=== PATIENT | male | born 1960 | race Caucasian/White ===

== ENCOUNTER 2018-12-10 12:30 | Observation (INO) | payer SELFPAY ==
[~2018-12-10] VITALS: Ht 175.3 cm; Wt 74.1 kg
[~2018-12-10 12:30] MED LIST: ALBU17AE3 IH; AZIT-21 PO; PRD20T PO
--- NOTE | 2018-12-10 12:58 | NUR ---
PT CHANGED INTO GOWN. PT BELONGINGS PLACED BEHIND DOOR.
--- NOTE | 2018-12-10 12:59 | ED Psychosocial ---
General Chief Complaint: Suicidal Ideation Risk Stated Complaint: SUICIDAL Nursing Triage Note: AMBULATED TO TRIAGE WITHOUT DIFFICULTY. STATES HE IS HAVING SUICIDAL THOUGHTS OF HANGING HIMSLEF AND HOMICIDAL THOUGHTS TOWARDS ONE PERSON. STATES HE HAS NO INTENT OF HARMING STAFF. STATES HE IS DEPRESSED AND AXIOUS. TALKED WITH [facility] ON SUNDAY WHO SENT HIM TO [facility] ER AND WAS RELEASED. Source: patient Exam Limitations: no limitations History of Present Illness Date Seen by Provider: Dec 10, 2018 Time Seen by Provider: 12:55 Initial Comments To ER per private vehicle with reports of suicidal thoughts . He states that he has anxiety, anger and hostility. He would like to tie a rope around his neck and kill himself. He also states that he would like to kill his girlfriend's ex- . States that she would either tie a rope around his neck and lean forward or "Fuck it Ill just kill somebody else and then go kill myself". He states that he has seen [facility] therapy in the outpatient setting which at that time he didn't feel like helped. In hindsight he does feel like it helped. He's been homeless until his son with him stay with him here in [place]. Timing/Duration: getting worse Severity: moderate Associated Symptoms: suicidal ideation Allergies and Home Medications Allergies Coded Allergies: codeine (Verified Allergy, 06/24/13) Home Medications Albuterol 17 Gm Inh, 2 SPRAY IH Q4H PRN for WHEEZING FOR BREATHING Prescribed by: JOAO SUN on 06/24/13 1119 Azithromycin 250 Mg Tab, 1 TAB PO DAILY 2 tabs today, then 1 tab daily for 4 days Prescribed by: JOAO SUN on 06/24/13 1119 Prednisone 20 Mg Tab, 40 MG PO DAILY Prescribed by: JOAO SUN on 06/24/13 1119 Patient Home Medication List Home Medication List Reviewed: Yes Review of Systems Constitutional: see HPI EENTM: see HPI Respiratory: no symptoms reported Cardiovascular: no symptoms reported Genitourinary: no symptoms reported Musculoskeletal: no symptoms reported Skin: no symptoms reported Psychiatric/Neurological: No Symptoms Reported Past Hmfbcfk-Nwxkcw-Rtosvo Hx Patient Social History Alcohol Use: Denies 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) Smoking Status: Current Everyday Smoker Recent Foreign Travel: No Contact w/Someone Who Travel: No Recent Infectious Disease Expo: No Past Medical History Surgeries: Yes (EYE) Appendectomy Respiratory: No Cardiac: No Neurological: No Gastrointestinal: No Musculoskeletal: No Endocrine: Yes (BORDERLINE DIABETIC) Cataract Cancer: No Psychosocial: Yes Anxiety, Suicide Attempts, Bipolar, Depression Integumentary: No Blood Disorders: No Physical Exam Vital Signs - First Documented 12/10/18 12:30 Temp 98.3 Pulse 80 Resp 16 B/P (MAP) 139/93 (108) Pulse Ox 98 O2 Delivery Room Air Capillary Refill : Less Than 3 Seconds Height, Weight, BMI Height: 5'9.00" Weight: 170lbs. oz. 77.086892gz; BMI Method:Estimated General Appearance: WD/WN, no apparent distress HEENT: PERRL/EOMI, normal ENT inspection, TMs normal Neck: non-tender, full range of motion Respiratory: no respiratory distress, no accessory muscle use Cardiovascular: regular rate, rhythm, no murmur Gastrointestinal: normal bowel sounds, non tender, soft Neurologic/Psychiatric: alert, normal mood/affect, oriented x 3 Appearance/Memory: appropriate insight, disheveled, other (he is disheveled but is coherent in his conversation. He seems to have a good grasp on his situation and realizes he cannot go on. He does seem sincere in both his desire to get clean as well as his threats of self-harm if he does not get help.) Behavior/Eye Contact: cooperative, good eye contact Skin: normal color, warm/dry Progress/Results/Core Measures Results/Orders Lab Results Laboratory Tests Test 12/10/18 13:18 12/10/18 13:33 Range/Units Urine Color YELLOW Urine Clarity CLEAR Urine pH 5 5-9 Urine Specific [place] 1.025 H 1.016-1.022 Urine Protein NEGATIVE NEGATIVE Urine Glucose (UA) NEGATIVE NEGATIVE Urine Ketones 3+ H NEGATIVE Urine Nitrite NEGATIVE NEGATIVE Urine Bilirubin NEGATIVE NEGATIVE Urine Urobilinogen NORMAL NORMAL MG/DL Urine Leukocyte Esterase NEGATIVE NEGATIVE Urine RBC (Auto) 1+ H NEGATIVE Urine RBC NONE /HPF Urine WBC RARE /HPF Urine Squamous Epithelial Cells RARE /HPF Urine Crystals NONE /LPF Urine Bacteria NEGATIVE /HPF Urine Casts NONE /LPF Urine Mucus NEGATIVE /LPF Urine Culture Indicated NO Urine Opiates Screen NEGATIVE NEGATIVE Urine Oxycodone Screen NEGATIVE NEGATIVE Urine Methadone Screen NEGATIVE NEGATIVE Urine Propoxyphene Screen NEGATIVE NEGATIVE Urine Barbiturates Screen NEGATIVE NEGATIVE Ur Tricyclic Antidepressants Screen NEGATIVE NEGATIVE Urine Phencyclidine Screen NEGATIVE NEGATIVE Urine Amphetamines Screen POSITIVE H NEGATIVE Urine Methamphetamines Screen POSITIVE H NEGATIVE Urine Benzodiazepines Screen NEGATIVE NEGATIVE Urine Cocaine Screen NEGATIVE NEGATIVE Urine Cannabinoids Screen POSITIVE H NEGATIVE White Blood Count 12.8 H 4.3-11.0 10^3/uL Red Blood Count 4.23 L 4.35-5.85 10^6/uL Hemoglobin 12.9 L 13.3-17.7 G/DL Hematocrit 38 L 40-54 % Mean Corpuscular Volume 90 80-99 FL Mean Corpuscular Hemoglobin 30 25-34 PG Mean Corpuscular Hemoglobin Concent 34 32-36 G/DL Red Cell Distribution Width 14.1 10.0-14.5 % Platelet Count 257 130-400 10^3/uL Mean Platelet Volume 9.4 7.4-10.4 FL Neutrophils (%) (Auto) 70 42-75 % Lymphocytes (%) (Auto) 21 12-44 % Monocytes (%) (Auto) 9 0-12 % Eosinophils (%) (Auto) 1 0-10 % Basophils (%) (Auto) 0 0-10 % Neutrophils # (Auto) 8.9 H 1.8-7.8 X 10^3 Lymphocytes # (Auto) 2.6 1.0-4.0 X 10^3 Monocytes # (Auto) 1.1 H 0.0-1.0 X 10^3 Eosinophils # (Auto) 0.1 0.0-0.3 10^3/uL Basophils # (Auto) 0.1 0.0-0.1 10^3/uL Sodium Level 138 135-145 MMOL/L Potassium Level 3.8 3.6-5.0 MMOL/L Chloride Level 108 H 98-107 MMOL/L Carbon Dioxide Level 20 L 21-32 MMOL/L Anion Gap 10 5-14 MMOL/L Blood Urea Nitrogen 20 H 7-18 MG/DL Creatinine 0.78 0.60-1.30 MG/DL Estimat Glomerular Filtration Rate > 60 BUN/Creatinine Ratio 26 Glucose Level 75 70-105 MG/DL Calcium Level 9.1 8.5-10.1 MG/DL Corrected Calcium 8.9 8.5-10.1 MG/DL Total Bilirubin 0.6 0.1-1.0 MG/DL Aspartate Amino Transf (AST/SGOT) 23 5-34 U/L Alanine Aminotransferase (ALT/SGPT) 17 0-55 U/L Alkaline Phosphatase 65 40-136 U/L Total Protein 6.4 6.4-8.2 GM/DL Albumin 4.3 3.2-4.5 GM/DL Salicylates Level < 5.0 L 5.0-20.0 MG/DL Acetaminophen Level < 10 L 10-30 UG/ML Serum Alcohol < 10 <10 MG/DL My Orders Orders - JOAO SUN APRN Cbc With Automated Diff (12/10/18 12:39) Comprehensive Metabolic Panel (12/10/18 12:39) Ua Culture If Indicated (12/10/18 12:39) Drug Screen Stat (Urine) (12/10/18 12:39) Salicylate (12/10/18 12:39) Alcohol (12/10/18 12:39) Acetaminophen (12/10/18 12:39) Olanzapine Orally Dissolve Tab (Zyprexa (12/10/18 13:00) Epinephrine 1 Mg Injection (Adrenalin I (12/10/18 14:00) Famotidine Injection (Pepcid Injection) (12/10/18 14:00) General/Regular (12/10/18 Lunch) Ekg Tracing (12/10/18 14:27) General/Regular (12/10/18 Dinner) Medications Given in ED Current Medications Medications Dose Ordered Sig/Jaime Route Start Time Stop Time Status Last Admin Dose Admin Olanzapine 5 mg ONCE ONCE PO 12/10/18 13:00 12/10/18 13:01 DC 12/10/18 13:15 5 MG Vital Signs/I&O 12/10/18 12/10/18 12:30 12:40 Temp 98.3 98.1 Pulse 80 80 Resp 16 19 B/P (MAP) 139/93 (108) 136/102 (113) Pulse Ox 98 O2 Delivery Room Air Room Air Blood Pressure Mean: 108 Departure Communication (Admissions) Time/Spoke to Admitting Phy: 21:[address] Camejo, we'll admit, have social media analyst help with placement tomorrow. I'll continue the Zyprexa that he was given here and add some as needed lorazepam. 2105-I've spoken with [facility], no bed availability. [facility] [place] [facility] denies patient as they feel that given his methamphetamine use a rehabilitation facility would be better. [facility] in [place] has declined. [facility] in [place] has declined. Patient refuses to go to [facility] in [place] however I called them anyway and they don't have a bed. I called [facility] in [place] as well as [facility] in [place], neither of them accept. I called [facility] in [facility], they don't have a bed. I called [facility], his tracking number is [id number]. They state that there would be nothing else that they could contribute to this situation, we simply need to wait for placement. I've called [facility] and [facility] both at approximately 5:30 PM they stated they had beds and would like his information. [facility] nothing back and called back around 6:30 PM. They advised it would be a little bit before they could review his chart. Called them both back at 8 PM, both of whom stated he was several patient's down the list and it would be at least several hours before he could be evaluated. During this time the patient has remained very pleasant, cooperative and has not voiced any needs nor has he been impatient. . Impression Primary Impression: Suicidal intent Disposition: ADMITTED INPATIENT Condition: Stable Admissions Decision to Admit Reason: Admit from ER (General) Decision to Admit/Date: Dec 10, 2018 Time/Decision to Admit Time: 21:04 Departure-Patient Inst. Referrals: NO,LOCAL PHYSICIAN (PCP/Family) Primary Care Physician JOAO SUN APRN Dec 10, 2018 12:59
[2018-12-10] MEDS ORDERED: OLANZapine 5 MG ODT (ZyPREXA ZYDIS) PO ONE (13:00)
[2018-12-10 13:23] LABS: BILIRUBIN,URINE NEGATIVE (NEGATIVE); CLARITY,URINE CLEAR; COLOR,URINE YELLOW; GLUCOSE, URINE (UA) NEGATIVE (NEGATIVE); KETONES,URINE 3+ (NEGATIVE); LEUKOCYTE ESTERASE ,URINE NEGATIVE (NEGATIVE); NITRITE,URINE NEGATIVE (NEGATIVE); PH,URINE 5 (5-9); PROTEIN,URINE NEGATIVE (NEGATIVE); UROBILINOGEN,URINE NORMAL (NORMAL)
[2018-12-10 13:40] LABS: BASOPHILS # (AUTO) 0.1 10^3/uL (0.0-0.1); BASOPHILS % (AUTO) 0 % (0-10); EOSINOPHILS # (AUTO) 0.1 10^3/uL (0.0-0.3); EOSINOPHILS % (AUTO) 1 % (0-10); HEMATOCRIT 38 % (40-54); HEMOGLOBIN 12.9 G/DL (13.3-17.7); LYMPHOCYTES # (AUTO) 2.6 X 10^3 (1.0-4.0); LYMPHOCYTES % (AUTO) 21 % (12-44); MEAN CORPUSCULAR HGB CONC 34 G/DL (32-36); MEAN CORPUSCULAR VOLUME 90 FL (80-99); MEAN PLATELET VOLUME 9.4 FL (7.4-10.4); MONOCYTES # (AUTO) 1.1 X 10^3 (0.0-1.0); MONOCYTES % (AUTO) 9 % (0-12); NEUTROPHILS # (AUTO) 8.9 X 10^3 (1.8-7.8); NEUTROPHILS % (AUTO) 70 % (42-75); PLATELET COUNT 257 10^3/uL (130-400); RED CELL DISTRIBUTION WIDTH 14.1 % (10.0-14.5); WHITE BLOOD COUNT 12.8 10^3/uL (4.3-11.0)
[2018-12-10 13:41] LABS: AMPHETAMINE SCREEN, URINE POSITIVE (NEGATIVE); BARBITURATE SCREEN URINE NEGATIVE (NEGATIVE); BENZODIAZEPINES SCREEN URINE NEGATIVE (NEGATIVE); CANNABINOID SCREEN, URINE POSITIVE (NEGATIVE); COCAINE SCREEN URINE NEGATIVE (NEGATIVE); METHADONE STAT NEGATIVE (NEGATIVE); METHAMPHETAMINE SCREEN URINE S POSITIVE (NEGATIVE); OPIATE SCREEN URINE NEGATIVE (NEGATIVE); OXYCODONE STAT NEGATIVE (NEGATIVE); PROPOXYPHENE STAT NEGATIVE (NEGATIVE); TRICYCLIC ANTIDEPRESSANTS SCRE NEGATIVE (NEGATIVE)
[2018-12-10 13:42] LABS: BACTERIA,URINE NEGATIVE /HPF; SQUAMOUS EPITHELIAL CELL,UR RARE /HPF; WBC,URINE RARE /HPF
[2018-12-10 13:52] LABS: MEAN CORPUSCULAR HEMOGLOBIN 30 PG (25-34)
[2018-12-10] MEDS ORDERED: FAMOTIDINE 20MG/2ML IV (PEPCID) IVP ONE (14:00)
[2018-12-10] MEDS ORDERED: EPINEPHrine INJECTION 1 MG/ML AMP IM ONE (14:00)
--- NOTE | 2018-12-10 14:04 | NUR ---
PT REQUESTED THIS RN CALL HIS EX GIRLFRIEND. STATES SHE IS THE PERSON THAT DROPPED HIM OFF AT THIS ER TODAY. CALL WAS PLACED. SHE DID NOT WANT TO SPEAK WITH HIM STATING THAT OCCASIONALLY SHE CAN GET HIM UPSET AND SHE WANTED TO MAKE SURE THAT HE STAYED CALM AND RECEIVED TREATMENT.
[2018-12-10 14:05] LABS: ALANINE AMINOTRANSFERASE 17 U/L (0-55); ALBUMIN 4.3 GM/DL (3.2-4.5); ALKALINE PHOSPHATASE 65 U/L (40-136); BILIRUBIN,TOTAL 0.6 MG/DL (0.1-1.0); BUN/CREATININE RATIO 26; CALCIUM 9.1 MG/DL (8.5-10.1); CARBON DIOXIDE 20 MMOL/L (21-32); CHLORIDE 108 MMOL/L (98-107); CREATININE SERUM 0.78 MG/DL (0.60-1.30); GFR ESTIMATED > 60; GLUCOSE 75 MG/DL (70-105); POTASSIUM 3.8 MMOL/L (3.6-5.0); SALICYLATE < 5.0 MG/DL (5.0-20.0); SODIUM 138 MMOL/L (135-145); TOTAL PROTEIN 6.4 GM/DL (6.4-8.2)
[2018-12-10 14:08] LABS: ACETAMINOPHEN < 10 UG/ML (10-30)
--- NOTE | 2018-12-10 15:00 | NUR ---
PT MEAL TRAY ARRIVED. PT SITTING IN CHAIR TO EAT.
--- NOTE | 2018-12-10 16:01 | NUR ---
PT IN BED SLEEPING.
--- NOTE | 2018-12-10 17:12 | NUR ---
PT SLEEPING IN BED. PT NOTED TO CHANGE POSITION IN BED FREQUENTLY.
--- NOTE | 2018-12-10 19:00 | NUR ---
Recieved report from YAZMIN Dotson to assume care of pt @ this time.
--- NOTE | 2018-12-10 20:30 | NUR ---
Pt recieved and ate meal tray. Voices no c/o or concerns @ this time. Pt resting on ED cart. A&OX4. Will continue to monitor.
--- NOTE | 2018-12-10 22:42 | NUR ---
Provider in room updating pt on admission status. Pt voices no questions or concerns @ this time. VS obtained by P[facility]P. Will continue to monitor.
[2018-12-10 23:30] VITALS: BP 109/65
--- NOTE | 2018-12-10 23:30 | NUR ---
LIONEL MARTIN admitted to room 433-1, with an admitting diagnosis of SUICIDAL IDEATION, on 12/10/18 from ED via WHEELCHAIR, accompanied by ED STAFF.LIONEL MARTIN introduced to surroundings, call light, bed controls, phone, TV, temperature control, lights, meal times, smoking policy, visitor policy, side rail policy, bathrooms and showers. Patient Rights given to patient in the handbook. LIONEL MARTIN verbalizes understanding that [facility] is not responsible for the loss or damage to any personal effects or valuables that are kept in the patients posession during their hospitalization. NO HARM CONTRACT SIGNED BY PT.
[2018-12-11] MEDS ORDERED: LORazepam INJ 2 MG/ML (ATIVAN) VIAL IM PRN (01:15)
[2018-12-11] MEDS ORDERED: NICOTINE 21 MG (NICODERM) PATCH TD PRN (01:15)
[2018-12-11] MEDS ORDERED: LORazepam 1 MG (ATIVAN) TAB PO PRN (01:15)
--- NOTE | 2018-12-11 02:00 | NUR ---
[facility] contacted ED reporting they do not have inpatient beds @ this time.
[2018-12-11] MEDS ORDERED: METO-451 PO (03:07)
[2018-12-11 04:30] VITALS: BP 122/71
[2018-12-11 07:51] VITALS: BP 106/70
--- NOTE | 2018-12-11 08:41 | Short Stay Summary-Hospitalist ---
History of Present Illness HPI/Chief Complaint Patient is a 58-year-old male with a past medical history of depression who presented to the emergency department with chief complaint of suicidal and homicidal ideation. He states this has been going on for a while and he previously been on antidepressives that only helped slightly. Over the past few days he's had thoughts of hurting himself. He has a plan to kill himself which would be by hanging. He also has homicidal thoughts towards his girlfriend's ex-. He would like to seek psychiatric treatment. This was attempted to be arranged in the ER but transportation was unavailable. He was admitted to obs for protection of self until psych transport was available. He had not new complaints today. Source: patient Date Seen 12/11/18 Time Seen by a Provider: 08:40 Attending Physician Eleazar Camejo MD PCP No,Local Physician Referring Physician Date of Admission Dec 10, 2018 at 7:42 pm Home Medications & Allergies Home Medications Reviewed patient Home Medication Reconciliation performed by pharmacy medication reconciliations product support technician and/or nursing. Patients Allergies have been reviewed. Allergies Allergies Coded Allergies codeine (Verified Allergy, Unknown, 12/11/18) Past Kmkfsbr-Xfzjpj-Ijszev Hx Past Med/Social Hx: Reviewed Nursing Past Med/Soc Hx Patient Social History Marrital Status: single Alcohol Use: Denies 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) Smoking Status: Current Everyday Smoker Recent Foreign Travel: No Contact w/other who traveled: No Recent Infectious Disease Expo: No Past Medical History Surgeries: Appendectomy HEENT: Cataract Psychosocial: Anxiety, Suicide Attempts, Bipolar, Depression History of Blood Disorders: No Family History Reviewed Nursing Family Hx Review of Systems Constitutional: no symptoms reported EENTM: no symptoms reported Respiratory: no symptoms reported Cardiovascular: no symptoms reported Gastrointestinal: no symptoms reported Genitourinary: no symptoms reported Musculoskeletal: no symptoms reported Skin: no symptoms reported Psychiatric/Neurological: See HPI Physical Exam Physical Exam Vital Signs Vital Signs - First Documented 12/10/18 12:30 Temp 98.3 Pulse 80 Resp 16 B/P (MAP) 139/93 (108) Pulse Ox 98 O2 Delivery Room Air Capillary Refill : Less Than 3 Seconds Height, Weight, BMI Height: 5'9.00" Weight: 163lbs. 5.0oz. 74.061623js; BMI Method:Stated General Appearance: No Apparent Distress, Chronically ill HEENT: Moist Mucous Membranes; No Scleral Icterus (L), No Scleral Icterus (R) Neck: Normal Inspection, Supple; No JVD Respiratory: Lungs Clear, No Accessory Muscle Use, No Respiratory Distress Cardiovascular: Regular Rate, Rhythm, No Murmur Gastrointestinal: Normal Bowel Sounds, Non Tender, Soft; No Distended, No Rebound, No Tenderness Extremity: Normal Capillary Refill, No Calf Tenderness, No Pedal Edema Neurologic/Psychiatric: Alert, Oriented x3, Depressed Affect, Other (dissheveled) Skin: Normal Color, Warm/Dry, Tattoos/Piercings Results Results/Procedures Labs Laboratory Tests 12/10/18 13:33 Patient resulted labs reviewed. Imaging: Reviewed Imaging Report Short Stay Diagnosis Discharge Diagnosis-Short Stay Admission Diagnosis Suicidal Ideation Final Discharge Diagnosis Suicidal Ideation Conclusion Plan Suicidal Ideation Major Depression Homicidal Ideation Accepted at [facility] DC once transportation available around 200pm today Continue with 1:1 sitter and psych precautions Clinical Quality Measures DVT/VTE Risk/Contraindication: Risk Factor Score Per Nursin RFS Level Per Nursing on Admit: 2=Moderate NIDIA BURNS MD Dec 11, 2018 08:41
[2018-12-11] MEDS ORDERED: OLANZapine 5 MG ODT (ZyPREXA ZYDIS) PO SCH (09:00)
--- NOTE | 2018-12-11 09:40 | NUR ---
NALLELY/SUNSHINE discussed with the patient that secure transportation is set up for 3 p.m. on 12/12/2018 and a bed will be held at [facility] ([phone]). Addendum: 12/11/18 at 0952 by KERON GONSALEZ Update: A secure transportation has became available for the patient for 2-3 p.m. on 12/11/18.
--- NOTE | 2018-12-11 11:15 | NUR ---
Report given to YAZMIN Miranda at [facility].
== END 2018-12-11 11:07 ==
LOC: EDUNIT# 12:30 → ER 12:31 → UNDOADMOB 19:42 → 4TH 19:42 → UNDODISOB 12-11 12:15
PROVIDERS: ADMIT Internal Medicine; ATTEND Internal Medicine
DX: R45.851 Suicidal ideations (principal); F32.9 Major depressive disorder, single episode, unspecified; R45.850 Homicidal ideations; F17.210 Nicotine dependence, cigarettes, uncomplicated; F41.9 Anxiety disorder, unspecified; Z88.5 Allergy status to narcotic agent; Z79.2 Long term (current) use of antibiotics; Z79.52 Long term (current) use of systemic steroids; Z79.899 Other long term (current) drug therapy
CPT/HCPCS: 36415; 80053; 80306; 80320; 80329; 81000; 85025; 93005; G0378

== ENCOUNTER 2018-12-21 17:15 | Observation (INO) | payer SELFPAY ==
[~2018-12-21] VITALS: Ht 175.3 cm; Wt 84.0 kg
[~2018-12-21 17:15] MED LIST changes: +METO-451 PO
[2018-12-21] MEDS ORDERED: NS IV 1000 ML 1,000 ML IV ONE (17:28)
[2018-12-21 17:34] LABS: BASOPHILS % (AUTO) 0 % (0-10); EOSINOPHILS # (AUTO) 0.1 10^3/uL (0.0-0.3); EOSINOPHILS % (AUTO) 1 % (0-10); HEMATOCRIT 39 % (40-54); HEMOGLOBIN 13.2 G/DL (13.3-17.7); LYMPHOCYTES # (AUTO) 1.9 X 10^3 (1.0-4.0); LYMPHOCYTES % (AUTO) 17 % (12-44); MEAN CORPUSCULAR HEMOGLOBIN 31 PG (25-34); MEAN CORPUSCULAR HGB CONC 34 G/DL (32-36); MEAN CORPUSCULAR VOLUME 91 FL (80-99); MEAN PLATELET VOLUME 9.2 FL (7.4-10.4); MONOCYTES # (AUTO) 0.9 X 10^3 (0.0-1.0); MONOCYTES % (AUTO) 8 % (0-12); NEUTROPHILS # (AUTO) 8.8 X 10^3 (1.8-7.8); NEUTROPHILS % (AUTO) 74 % (42-75); PLATELET COUNT 274 10^3/uL (130-400); RED CELL DISTRIBUTION WIDTH 13.9 % (10.0-14.5); WHITE BLOOD COUNT 11.8 10^3/uL (4.3-11.0)
--- NOTE | 2018-12-21 17:37 | ED Psychosocial ---
General Chief Complaint: Overdose Stated Complaint: OVERDDOSE Nursing Triage Note: Patient brought to ER room 9 by [facility] with complaint of overdose of Trazadone 150 mg. Per patient he took approximately 13 tablets approximately 1 hour ago. He states he was trying to kill himself. Patient states he has a son that "doesn't love him anymore and I am a worthless father". he called a son after he took the pills and told him he was going to kill himself and the son called EMS. Patient states he is homeless and lives in his car. Source: patient Exam Limitations: no limitations History of Present Illness Date Seen by Provider: Dec 21, 2018 Time Seen by Provider: 17:28 Initial Comments Here with report of overdosing on 13 each 150 mg trazodone tablets in an effort to commit suicide. Patient is very drowsy. After taking the meds he contacted his son and told him. Law enforcement found him in his car and EMS was summoned and brought him here. Patient is quite drowsy but does answer simple questions and follow simple commands. He is protecting his airway well. He has history of suicidal ideation. This seems to be related to he was recently evicted and is living in his car currently. He does arrive quite sweaty. He states he was in his car but all the windows were down. Denies nausea or vomiting. Has had some d iarrhea. Timing/Duration: just prior to arrival (approximately one hour ago) Severity: severe Associated Symptoms: ingestion, suicidal ideation Allergies and Home Medications Allergies Coded Allergies: codeine (Verified Allergy, Unknown, 12/11/18) Home Medications No Active Prescriptions or Reported Meds Patient Home Medication List Home Medication List Reviewed: Yes Review of Systems Constitutional: see HPI; No chills; diaphoresis; No fever (tramadol as he did try to isolate elevation) EENTM: no symptoms reported Respiratory: no symptoms reported Cardiovascular: no symptoms reported Gastrointestinal: No abdominal pain; diarrhea Genitourinary: No dysuria, No pain Musculoskeletal: no symptoms reported Skin: no symptoms reported Psychiatric/Neurological: See HPI, Depressed, Emotional Problems All Other Systems Reviewed Negative Unless Noted: Yes Past Zdiwgcq-Xbhhot-Czovhl Hx Past Med/Social Hx: Reviewed Nursing Past Med/Soc Hx Patient Social History Alcohol Use: Denies Use Recreational Drug Use: Yes (meth and marijuana) Smoking Status: Current Everyday Smoker Recent Foreign Travel: No Contact w/Someone Who Travel: No Recent Infectious Disease Expo: No Physical Abuse: No Sexual Abuse: No Mistreated: No Fear: No Past Medical History Surgeries: Yes (EYE) Appendectomy Respiratory: No Cardiac: No Neurological: No Gastrointestinal: No Musculoskeletal: No Endocrine: Yes (BORDERLINE DIABETIC) Cataract Cancer: No Psychosocial: Yes Anxiety, Suicide Attempts, Bipolar, Depression Nursing Suicide Risk Notes: Patient presents today for an overdose on trazadone trying to kill himself. Patient states he has tried to kill himself in the past on cocaine. Integumentary: No Blood Disorders: No Family Medical History Reviewed Nursing Family Hx Physical Exam Vital Signs - First Documented 12/21/18 17:24 Temp 97.6 Pulse 76 Resp 14 B/P (MAP) 125/79 (94) Pulse Ox 96 O2 Delivery Room Air Capillary Refill : Less Than 3 Seconds Height, Weight, BMI Height: 5'9.00" Weight: 165lbs. 5.0oz. 74.368813ls; BMI Method:Stated General Appearance: WD/WN, no apparent distress HEENT: PERRL/EOMI, pharynx normal Neck: full range of motion, supple Respiratory: lungs clear, normal breath sounds Cardiovascular: regular rate, rhythm, no murmur Gastrointestinal: non tender, soft Extremities: non-tender, normal inspection Neurologic/Psychiatric: alert, oriented x 3 (Li) Appearance/Memory: disheveled Behavior/Eye Contact: cooperative, decreased rate of speech Thoughts/Hallucinations: normal thought pattern, no apparent hallucination Skin: normal color, warm/dry Progress/Results/Core Measures Results/Orders Lab Results Laboratory Tests Test 12/21/18 17:24 12/21/18 18:43 12/22/18 04:15 Range/Units White Blood Count 11.8 H 12.4 H 4.3-11.0 10^3/uL Red Blood Count 4.27 L 3.84 L 4.35-5.85 10^6/uL Hemoglobin 13.2 L 11.8 L 13.3-17.7 G/DL Hematocrit 39 L 36 L 40-54 % Mean Corpuscular Volume 91 93 80-99 FL Mean Corpuscular Hemoglobin 31 31 25-34 PG Mean Corpuscular Hemoglobin Concent 34 33 32-36 G/DL Red Cell Distribution Width 13.9 13.9 10.0-14.5 % Platelet Count 274 245 130-400 10^3/uL Mean Platelet Volume 9.2 9.4 7.4-10.4 FL Neutrophils (%) (Auto) 74 66 42-75 % Lymphocytes (%) (Auto) 17 24 12-44 % Monocytes (%) (Auto) 8 8 0-12 % Eosinophils (%) (Auto) 1 2 0-10 % Basophils (%) (Auto) 0 0 0-10 % Neutrophils # (Auto) 8.8 H 8.2 H 1.8-7.8 X 10^3 Lymphocytes # (Auto) 1.9 3.0 1.0-4.0 X 10^3 Monocytes # (Auto) 0.9 1.0 0.0-1.0 X 10^3 Eosinophils # (Auto) 0.1 0.2 0.0-0.3 10^3/uL Basophils # (Auto) 0.0 0.0 0.0-0.1 10^3/uL Sodium Level 143 143 135-145 MMOL/L Potassium Level 4.0 3.9 3.6-5.0 MMOL/L Chloride Level 109 H 111 H 98-107 MMOL/L Carbon Dioxide Level 22 24 21-32 MMOL/L Anion Gap 12 8 5-14 MMOL/L Blood Urea Nitrogen 18 15 7-18 MG/DL Creatinine 0.97 0.87 0.60-1.30 MG/DL Estimat Glomerular Filtration Rate > 60 > 60 BUN/Creatinine Ratio 19 17 Glucose Level 120 H 108 H 70-105 MG/DL Calcium Level 8.7 8.2 L 8.5-10.1 MG/DL Corrected Calcium 8.5 8.5-10.1 MG/DL Total Bilirubin 0.4 0.1-1.0 MG/DL Aspartate Amino Transf (AST/SGOT) 17 5-34 U/L Alanine Aminotransferase (ALT/SGPT) 61 H 0-55 U/L Alkaline Phosphatase 52 40-136 U/L Total Protein 6.3 L 6.4-8.2 GM/DL Albumin 4.2 3.2-4.5 GM/DL Salicylates Level < 5.0 L 5.0-20.0 MG/DL Acetaminophen Level < 10 L 10-30 UG/ML Serum Alcohol < 10 <10 MG/DL Urine Color NORMA H Urine Clarity CLEAR Urine pH 6 5-9 Urine Specific Arverne 1.020 1.016-1.022 Urine Protein 1+ H NEGATIVE Urine Glucose (UA) NEGATIVE NEGATIVE Urine Ketones 1+ H NEGATIVE Urine Nitrite NEGATIVE NEGATIVE Urine Bilirubin NEGATIVE NEGATIVE Urine Urobilinogen 4 H NORMAL MG/DL Urine Leukocyte Esterase 1+ H NEGATIVE Urine RBC (Auto) NEGATIVE NEGATIVE Urine RBC NONE /HPF Urine WBC 0-2 /HPF Urine Squamous Epithelial Cells 0-2 /HPF Urine Crystals NONE /LPF Urine Bacteria TRACE /HPF Urine Casts NONE /LPF Urine Mucus MODERATE H /LPF Urine Culture Indicated NO Urine Opiates Screen NEGATIVE NEGATIVE Urine Oxycodone Screen NEGATIVE NEGATIVE Urine Methadone Screen NEGATIVE NEGATIVE Urine Propoxyphene Screen NEGATIVE NEGATIVE Urine Barbiturates Screen NEGATIVE NEGATIVE Ur Tricyclic Antidepressants Screen NEGATIVE NEGATIVE Urine Phencyclidine Screen NEGATIVE NEGATIVE Urine Amphetamines Screen NEGATIVE NEGATIVE Urine Methamphetamines Screen NEGATIVE NEGATIVE Urine Benzodiazepines Screen NEGATIVE NEGATIVE Urine Cocaine Screen NEGATIVE NEGATIVE Urine Cannabinoids Screen POSITIVE H NEGATIVE Phosphorus Level 4.2 2.3-4.7 MG/DL Magnesium Level 2.4 1.6-2.4 MG/DL My Orders Orders - CURT GAVIN MD Ua Culture If Indicated (12/21/18 17:28) Cbc With Automated Diff (12/21/18 17:28) Comprehensive Metabolic Panel (12/21/18 17:28) Alcohol (12/21/18 17:28) Drug Screen Stat (Urine) (12/21/18 17:28) Acetaminophen (12/21/18 17:28) Salicylate (12/21/18 17:28) Ekg Tracing (12/21/18 17:28) Ed Iv/Invasive Line Start (12/21/18 17:28) Monitor-Rhythm Ecg Trace Only (12/21/18 17:28) Bh Status Checks/Observation Q15M (12/21/18 17:28) Ed Iv/Invasive Line Start (12/21/18 17:28) Ns Iv 1000 Ml (Sodium Chloride 0.9%) (12/21/18 17:28) Medications Given in ED Vital Signs/I&O 12/21/18 12/21/18 12/21/18 12/21/18 19:59 20:10 20:15 20:30 Temp 97.6 97.5 Pulse 76 91 Resp 14 B/P (MAP) 123/67 (85) Pulse Ox 95 O2 Delivery Room Air Room Air 12/21/18 12/21/18 12/21/18 12/21/18 20:45 21:00 22:00 23:00 Pulse 76 75 74 72 Resp 9 15 13 13 B/P (MAP) 123/77 (92) 129/69 (89) Pulse Ox 97 96 97 94 O2 Delivery Room Air Room Air Room Air Room Air 12/22/18 12/22/18 12/22/18 12/22/18 00:00 00:00 00:00 01:00 Temp 97.8 Pulse 72 70 Resp 13 13 B/P (MAP) 104/67 (79) Pulse Ox 96 96 96 O2 Delivery Room Air Room Air Room Air 12/22/18 12/22/18 12/22/18 12/22/18 01:00 02:00 03:00 04:00 Pulse 70 70 74 Resp 13 14 B/P (MAP) 84/48 (60) 93/60 (71) Pulse Ox 96 96 O2 Delivery Room Air Room Air Room Air 12/22/18 12/22/18 12/22/18 04:00 04:00 05:00 Temp 98.2 Pulse 69 72 Resp 14 14 B/P (MAP) 97/59 (72) 93/61 (72) Pulse Ox 95 98 O2 Delivery Room Air Room Air Blood Pressure Mean: 94 Progress Progress Note : Progress Note Seen and evaluated on arrival by EMS. IV established by EMS. Normal saline 1 L bolus, labs, UA, EKG ordered. Poison control contacted. Supportive care indicated. Priapism can be a concern and overdose. Patient will need monitoring due to possibility of significant sedation. 1843: I did discuss the case with Dr. Martínez. He access patient for admission to the ICU, observation status. Patient agrees to plan. No significant sequela thus far except for sedation. Initial ECG Impression Date: Dec 21, 2018 Initial ECG Impression Time: 17:53 Initial ECG Rate: 74 Initial ECG Rhythm: Normal Sinus Comment Sinus rhythm with normal axis. No evidence of ST elevation NC. Similar to 12/10/18. Interpreted by me. Departure Impression Primary Impression: Overdose Qualified Codes: T50.902A - Poisoning by unspecified drugs, medicaments and biological substances, intentional self-harm, initial encounter Disposition: ADMITTED INPATIENT Condition: Stable Admissions Decision to Admit Reason: Admit from ER (General) Decision to Admit/Date: Dec 21, 2018 Time/Decision to Admit Time: 18:43 Departure-Patient Inst. Referrals: NO,LOCAL PHYSICIAN (PCP/Family) Primary Care Physician Patient Instructions: ALCOHOL AND SUBSTANCE ABUSE Scripts No Active Prescriptions or Reported Meds CURT GAVIN MD Dec 21, 2018 17:37
[2018-12-21 17:55] LABS: ALANINE AMINOTRANSFERASE 61 U/L (0-55); ALBUMIN 4.2 GM/DL (3.2-4.5); ALKALINE PHOSPHATASE 52 U/L (40-136); BILIRUBIN,TOTAL 0.4 MG/DL (0.1-1.0); BUN/CREATININE RATIO 19; CALCIUM 8.7 MG/DL (8.5-10.1); CARBON DIOXIDE 22 MMOL/L (21-32); CHLORIDE 109 MMOL/L (98-107); CREATININE SERUM 0.97 MG/DL (0.60-1.30); GFR ESTIMATED > 60; GLUCOSE 120 MG/DL (70-105); SALICYLATE < 5.0 MG/DL (5.0-20.0); SODIUM 143 MMOL/L (135-145); TOTAL PROTEIN 6.3 GM/DL (6.4-8.2)
[2018-12-21 18:05] LABS: ACETAMINOPHEN < 10 UG/ML (10-30)
--- NOTE | 2018-12-21 18:09 | NUR ---
Patient awake and alert. Patient has asked for ice chips, food, and a shower. Patient given ice chips and is eating them without difficulty.
--- NOTE | 2018-12-21 18:39 | NUR ---
Patient resting quietly in room. Son was at bedside. Patient eating ice chips.
[2018-12-21 18:53] LABS: BILIRUBIN,URINE NEGATIVE (NEGATIVE); CLARITY,URINE CLEAR; COLOR,URINE AMBER; GLUCOSE, URINE (UA) NEGATIVE (NEGATIVE); KETONES,URINE 1+ (NEGATIVE); LEUKOCYTE ESTERASE ,URINE 1+ (NEGATIVE); NITRITE,URINE NEGATIVE (NEGATIVE); PH,URINE 6 (5-9); PROTEIN,URINE 1+ (NEGATIVE); UROBILINOGEN,URINE 4 MG/DL (NORMAL)
[2018-12-21 19:02] LABS: BACTERIA,URINE TRACE /HPF; SQUAMOUS EPITHELIAL CELL,UR 0-2 /HPF; WBC,URINE 0-2 /HPF
[2018-12-21 19:06] LABS: AMPHETAMINE SCREEN, URINE NEGATIVE (NEGATIVE); BARBITURATE SCREEN URINE NEGATIVE (NEGATIVE); BENZODIAZEPINES SCREEN URINE NEGATIVE (NEGATIVE); CANNABINOID SCREEN, URINE POSITIVE (NEGATIVE); COCAINE SCREEN URINE NEGATIVE (NEGATIVE); METHADONE STAT NEGATIVE (NEGATIVE); METHAMPHETAMINE SCREEN URINE S NEGATIVE (NEGATIVE); OPIATE SCREEN URINE NEGATIVE (NEGATIVE); OXYCODONE STAT NEGATIVE (NEGATIVE); PROPOXYPHENE STAT NEGATIVE (NEGATIVE); TRICYCLIC ANTIDEPRESSANTS SCRE NEGATIVE (NEGATIVE)
--- NOTE | 2018-12-21 19:16 | NUR ---
Patient resting quietly in bed. Vital signs stable. No signs of distress present.
--- NOTE | 2018-12-21 19:19 | NUR ---
Patient will remain in ER until nurse arrives to take over patient care in ICU.
--- NOTE | 2018-12-21 19:38 | NUR ---
Patient resting quietly in bed. No signs of distress. Vital signs stable.
[2018-12-21] MEDS: NS IV 1000 ML 1,000 ML IV SCH (20:32)
[2018-12-21] MEDS ORDERED: NS IV 1000 ML 1,000 ML ONE (20:32)
[2018-12-21 20:45] VITALS: BP 123/77
[2018-12-21] MEDS ORDERED: ONDANSETRON 4 MG/2 ML (SDV) Z0FRAN IV PRN (20:45)
[2018-12-21 21:00] VITALS: BP 129/69
[2018-12-22] VITALS (13 sets, daily range): BP systolic 84–125; BP diastolic 48–72
[2018-12-22 04:24] LABS: BASOPHILS % (AUTO) 0 % (0-10); EOSINOPHILS # (AUTO) 0.2 10^3/uL (0.0-0.3); EOSINOPHILS % (AUTO) 2 % (0-10); HEMATOCRIT 36 % (40-54); HEMOGLOBIN 11.8 G/DL (13.3-17.7); LYMPHOCYTES % (AUTO) 24 % (12-44); MEAN CORPUSCULAR HEMOGLOBIN 31 PG (25-34); MEAN CORPUSCULAR HGB CONC 33 G/DL (32-36); MEAN CORPUSCULAR VOLUME 93 FL (80-99); MEAN PLATELET VOLUME 9.4 FL (7.4-10.4); MONOCYTES % (AUTO) 8 % (0-12); NEUTROPHILS # (AUTO) 8.2 X 10^3 (1.8-7.8); NEUTROPHILS % (AUTO) 66 % (42-75); PLATELET COUNT 245 10^3/uL (130-400); RED CELL DISTRIBUTION WIDTH 13.9 % (10.0-14.5); WHITE BLOOD COUNT 12.4 10^3/uL (4.3-11.0)
[2018-12-22] MEDS: NS IV 1000 ML 1,000 ML IV SCH (04:30)
[2018-12-22 04:43] LABS: BUN/CREATININE RATIO 17; CALCIUM 8.2 MG/DL (8.5-10.1); CARBON DIOXIDE 24 MMOL/L (21-32); CHLORIDE 111 MMOL/L (98-107); CREATININE SERUM 0.87 MG/DL (0.60-1.30); GFR ESTIMATED > 60; GLUCOSE 108 MG/DL (70-105); MAGNESIUM 2.4 MG/DL (1.6-2.4); PHOSPHORUS 4.2 MG/DL (2.3-4.7); POTASSIUM 3.9 MMOL/L (3.6-5.0); SODIUM 143 MMOL/L (135-145)
[2018-12-22] MEDS ORDERED: MAGNESIUM 1 GM/100 ML IVPB 100 ML IV SCH (06:00)
[2018-12-22] MEDS ORDERED: KCL 20 MEQ TAB (K-DUR) PO SCH (06:00)
[2018-12-22] MEDS ORDERED: POTASSIUM CL 10MEQ/50ML IVPB 50 ML IV SCH (06:00)
--- NOTE | 2018-12-22 06:28 | Diagnostic Imaging Report ---
INDICATION: Drug overdose shortness of breath COMPARISON: 06/24/2013 FINDINGS: Single view of the chest demonstrates clear lungs bilaterally. The heart size is normal. There is no pneumothorax. Osseous structures are normal. IMPRESSION: No acute findings. Normal chest. Dictated by: Dictated on workstation # [id number]
--- NOTE | 2018-12-22 06:52 | Pulmonary Consultation ---
History of Present Illness History of Present Illness Date of Consultation 12/22/18 06:45 Date of Admission Allergies and Home Medications Allergies Coded Allergies: codeine (Verified Allergy, Unknown, 12/11/18) Home Medications No Active Prescriptions or Reported Meds Past Ppdueqj-Brzamh-Wmcsju Hx Past Med/Social Hx: Reviewed Nursing Past Med/Soc Hx Patient Social History Alcohol Use: Denies Use Recreational Drug Use: Yes (meth and marijuana) Drug of Choice: meth, marijuana Smoking Status: Current Everyday Smoker Type Used: Cigarettes 2nd Hand Smoke Exposure: Yes Recent Foreign Travel: No Contact w/Someone Who Travel: No Recent Infectious Disease Expo: No Recent Hopitalizations: No Physical Abuse: No Sexual Abuse: No Mistreated: No Fear: No Seasonal Allergies Seasonal Allergies: No Past Medical History Surgeries: Yes (cararacts) Appendectomy Respiratory: No Cardiac: No Neurological: No Genitourinary: No Gastrointestinal: No Musculoskeletal: No Endocrine: No HEENT: No Cataract Cancer: No Psychosocial: Yes Suicide Attempts, Depression Nursing Suicide Risk Notes: Patient presents today for an overdose on trazadone trying to kill himself. Patient states he has tried to kill himself in the past on cocaine. Integumentary: No Blood Disorders: No Family Medical History Reviewed Nursing Family Hx Review of Systems Time Seen by Provider: 06:51 Constitutional: No: Fever, Chills, Sweats, Weakness, Malaise, Other Eyes: No: Pain, Vision change, Conjunctivae inflammation, Eyelid inflammation, Other, Redness ENT: Nose congestion; No: Ear pain, Ear discharge, Nose pain, Nose discharge, Mouth pain, Mouth swelling, Throat pain, Throat swelling, Other Respiratory: No: Cough, Dry, Shortness of breath, SOB with excertion, Wheezing, Hemoptysis, Pleuritic Pain, Sputum, Wheezing, Other Cardiovascular: No: Chest Pain, Palpitations, Orthopnea, Paroxysmal Noc. Dyspnea, Edema, Lt Headedness, Other Sepsis Event Evaluation Height, Weight, BMI Height: 5'9.00" Weight: 175lbs. 5.0oz. 79.990684xi; 25.9 BMI Method:Stated Exam Exam Vital Signs Date Time Temp Pulse Resp B/P (MAP) Pulse Ox O2 Delivery O2 Flow Rate FiO2 12/22/18 06:00 73 12 98/61 (73) 96 Room Air 12/22/18 05:00 72 14 93/61 (72) 98 Room Air 12/22/18 04:00 69 14 97/59 (72) 95 Room Air 12/22/18 04:00 98.2 12/22/18 04:00 Room Air 12/22/18 03:00 74 14 93/60 (71) 96 Room Air 12/22/18 02:00 70 13 84/48 (60) 96 Room Air 12/22/18 01:00 70 12/22/18 01:00 70 13 104/67 (79) 96 Room Air 12/22/18 00:00 97.8 12/22/18 00:00 72 13 96 Room Air 12/22/18 00:00 96 Room Air 12/21/18 23:00 72 13 94 Room Air 12/21/18 22:00 74 13 97 Room Air 12/21/18 21:00 75 15 129/69 (89) 96 Room Air 12/21/18 20:45 76 9 123/77 (92) 97 Room Air 12/21/18 20:30 91 12/21/18 20:15 97.5 12/21/18 20:10 Room Air 12/21/18 19:59 97.6 76 14 123/67 (85) 95 Room Air 12/21/18 17:24 97.6 76 14 125/79 (94) 96 Room Air I & O 12/22/18 07:00 Intake Total 2600 ml Output Total 300 ml Balance 2300 ml Height & Weight Height: 5'9.00" Weight: 175lbs. 5.0oz. 79.811215cn; 25.9 BMI Method:Stated General Appearance: No Apparent Distress, WD/WN HEENT: PERRL/EOMI, Pharynx Normal Neck: Full Range of Motion, Non Tender, Supple Respiratory: Chest Non Tender, Lungs Clear, Normal Breath Sounds, No Accessory Muscle Use, No Respiratory Distress Cardiovascular: Regular Rate, Rhythm, No Edema, No Gallop Capillary Refill: Less Than 3 Seconds Gastrointestinal: non tender, soft Extremity: Normal Capillary Refill, No Pedal Edema Neurologic/Psychiatric: Alert, Oriented x3 Skin: Normal Color, Warm/Dry Lymphatic: No Adenopathy Results Lab Laboratory Tests 12/21/18 17:24 12/22/18 04:15 Assessment/Plan Assessment/Plan Acute Suicidal attempt with OD on Trazodone -Poison control following -Behavioral health -Suicidal precautions Leukocytosis - No fever -Continue to monitor -CXR is clear -UA is negative Hx of depression and suicidal attempts. Mild Hypotension -IVF bolus -Continue IVF Valeria use -Education KHRIS ANDREA DO Dec 22, 2018 06:52
[2018-12-22] MEDS ORDERED: LACTATED RINGERS 1,000 ML IV SCH (07:00)
--- NOTE | 2018-12-22 09:37 | NUR ---
PATIENT TRANSFER TO 4TH FLOOR AT THIS TIME TO ROOM 420, PERSONAL BELONGINGS SENT WITH PATIENT. REPORT GIVEN TO NOAH ARCE TO ASSUME CARE OF PATIENT.
--- NOTE | 2018-12-22 09:40 | NUR ---
RECEIVED FROM ICU, ALERT, ORIENTED TO ROOM, CALL LIGHT WITHIN REACH, DENIES PAIN OR SOB, CAMPO SITTER IN ROOM AND ACTIVATED, COOPERATIVE, GOOD EYE CONTACT
[2018-12-22] MEDS ORDERED: diphenhydrAMINE 25 MG TAB (BENADRYL) PO PRN (10:45)
[2018-12-22] MEDS ORDERED: ACETAMINOPHEN 325 MG TABLET PO PRN (10:45)
[2018-12-22] MEDS ORDERED: POLYETHYLENE GLYCOL 17 GM (MIRALAX) PACK PO PRN (10:45)
[2018-12-22] MEDS ORDERED: MELATONIN 3 MG TABLET PO PRN (10:45)
[2018-12-22] MEDS ORDERED: ZOLPIDEM 5 MG (AMBIEN) TAB PO PRN (10:45)
[2018-12-22] MEDS ORDERED: ONDANSETRON 4 MG (ZOFRAN) ORAL DISSOLVE TAB PO PRN (10:45)
--- NOTE | 2018-12-22 10:51 | History & Physical-Hospitalist ---
History of Present Illness HPI/Chief Complaint Deepak Martinez is a 58-year-old male with past medical history of depression who presented with an intentional drug overdose of trazodone. He was recently discharged from an inpatient psychiatric stay at [facility] in [place]. He reports that he took the trazodone with the intent of ending his life. He reports continued suicidal ideation and intent. He has no homicidal ideations at this time. He does have a history of both suicidal and homicidal attempts. He has attempted to overdose on medications and has cut himself. He reports that his current social situation is poor. He says that his son recently kicked him out of his house and that he has been living in a car. He also has issues with methamphetamine abuse. He would like to seek help but cannot get into a rehabilitation facility at this time. He denies any fevers, chills, chest pain, dyspnea, cough, abdominal pain, nausea, vomiting, diarrhea, constipation, dysuria, myalgias, arthralgias. Source: patient Exam Limitations: no limitations Date Seen 12/22/18 Time Seen by a Provider: 08:15 Attending Physician Marielos Callahan MD PCP No,Local Physician Referring Physician Date of Admission Dec 21, 2018 at 18:47 Home Medications & Allergies Home Medications Reviewed patient Home Medication Reconciliation performed by pharmacy medication reconciliations audiometric technician and/or nursing. Patients Allergies have been reviewed. Allergies Allergies Coded Allergies codeine (Verified Allergy, Unknown, 12/11/18) Past Tsvhsad-Pjdepf-Ooxeey Hx Past Med/Social Hx: Reviewed Nursing Past Med/Soc Hx Patient Social History Alcohol Use: Denies Use Recreational Drug Use: Yes (meth and marijuana) Drug of Choice: meth, marijuana Smoking Status: Current Everyday Smoker Type Used: Cigarettes 2nd Hand Smoke Exposure: Yes Recent Foreign Travel: No Contact w/other who traveled: No Recent Hopitalizations: No Recent Infectious Disease Expo: No Seasonal Allergies Seasonal Allergies: No Past Medical History Surgeries: Appendectomy HEENT: Cataract Psychosocial: Suicide Attempts, Depression History of Blood Disorders: No Family History Reviewed Nursing Family Hx Review of Systems Constitutional: see HPI Physical Exam Physical Exam Vital Signs Vital Signs - First Documented 12/21/18 17:24 Temp 97.6 Pulse 76 Resp 14 B/P (MAP) 125/79 (94) Pulse Ox 96 O2 Delivery Room Air Capillary Refill : Less Than 3 Seconds Height, Weight, BMI Height: 5'9.00" Weight: 185lbs. 2.0oz. 83.909889ta; 25.9 BMI Method:Stated General Appearance: No Apparent Distress, WD/WN, Other (Disheveled, poorly groomed) HEENT: PERRL/EOMI, Pharynx Normal Neck: Normal Inspection, Supple Respiratory: Lungs Clear, Normal Breath Sounds, No Respiratory Distress Cardiovascular: Regular Rate, Rhythm, No Edema, No Murmur Gastrointestinal: Normal Bowel Sounds, Non Tender, Soft Extremity: Normal Inspection, Non Tender Neurologic/Psychiatric: Alert, Oriented x3, Depressed Affect Skin: Normal Color, Warm/Dry, Other (Scars on wrists) Lymphatic: No Adenopathy Results Results/Procedures Labs Laboratory Tests 12/21/18 17:24 12/22/18 04:15 Patient resulted labs reviewed. Imaging: Reviewed Imaging Report Assessment/Plan Admission Diagnosis Intentional drug overdose Admission Status: Observation Reason for Inpatient Admission: Suicidal ideation Depression Assessment and Plan Intentional drug overdose Suicide attempt Depression Anxiety Methamphetamine abuse Cannabis abuse Attempted suicide by overdosing on trazodone ER contacted CCU recommended monitoring for sedation and VP PLATFORMS depression Alert and oriented this morning, hemodynamically stable on room air Transition to med/surg Consult behavioral health Suicide precautions Tele-sitter ordered Will likely require inpatient psychiatric treatment Diagnosis/Problems Diagnosis/Problems (1) Intentional drug overdose Status: Acute (2) Depression Status: Chronic (3) Anxiety Status: Chronic (4) Suicide attempt Status: Acute (5) History of suicide attempt Status: Chronic (6) Methamphetamine abuse Status: Chronic (7) Cannabis abuse Status: Chronic (8) Social problem Status: Acute Clinical Quality Measures DVT/VTE Risk/Contraindication: Risk Factor Score Per Nursin RFS Level Per Nursing on Admit: 2=Moderate MARIELOS CALLAHAN MD Dec 22, 2018 10:51
[2018-12-22] MEDS: DOCUSATE SODIUM 100 MG (COLACE) CAP PO SCH (19:55)
[2018-12-22] MEDS: SENNA W/DOCUSATE (SENOKOT S) TABLET PO SCH (19:55)
[2018-12-23 04:35] VITALS: BP 114/66
[2018-12-23 04:46] LABS: BASOPHILS % (AUTO) 0 % (0-10); EOSINOPHILS # (AUTO) 0.5 10^3/uL (0.0-0.3); EOSINOPHILS % (AUTO) 4 % (0-10); HEMATOCRIT 39 % (40-54); HEMOGLOBIN 12.6 G/DL (13.3-17.7); LYMPHOCYTES # (AUTO) 3.8 X 10^3 (1.0-4.0); LYMPHOCYTES % (AUTO) 30 % (12-44); MEAN CORPUSCULAR HEMOGLOBIN 30 PG (25-34); MEAN CORPUSCULAR HGB CONC 33 G/DL (32-36); MEAN CORPUSCULAR VOLUME 93 FL (80-99); MEAN PLATELET VOLUME 9.7 FL (7.4-10.4); MONOCYTES # (AUTO) 1.1 X 10^3 (0.0-1.0); MONOCYTES % (AUTO) 9 % (0-12); NEUTROPHILS # (AUTO) 7.4 X 10^3 (1.8-7.8); NEUTROPHILS % (AUTO) 58 % (42-75); PLATELET COUNT 254 10^3/uL (130-400); RED CELL DISTRIBUTION WIDTH 13.7 % (10.0-14.5); WHITE BLOOD COUNT 12.8 10^3/uL (4.3-11.0)
[2018-12-23 05:08] LABS: BUN/CREATININE RATIO 19; CALCIUM 8.8 MG/DL (8.5-10.1); CARBON DIOXIDE 21 MMOL/L (21-32); CHLORIDE 110 MMOL/L (98-107); CREATININE SERUM 0.84 MG/DL (0.60-1.30); GFR ESTIMATED > 60; GLUCOSE 89 MG/DL (70-105); MAGNESIUM 1.9 MG/DL (1.6-2.4); PHOSPHORUS 3.8 MG/DL (2.3-4.7); POTASSIUM 4.1 MMOL/L (3.6-5.0); SODIUM 140 MMOL/L (135-145)
[2018-12-23 08:00] VITALS: BP 124/70
[2018-12-23] MEDS: DOCUSATE SODIUM 100 MG (COLACE) CAP PO SCH ×2 (09:00→21:23)
[2018-12-23] MEDS: SENNA W/DOCUSATE (SENOKOT S) TABLET PO SCH ×2 (09:00→21:23)
--- NOTE | 2018-12-23 09:14 | NUR ---
CM/SUNSHINE spoke with patient in regards to the SS consult. Discussed that he had recently been here and then went to [facility]. He stated he was not interested in going to inpatient facility this time as they do not help. He said "I will play by the book and do / say what need to until released then go kill someone". He did confirm that when he took the pills it was a suicide attempt. Call into [facility] for assessment. [facility] computer forensics technician will be out this day at 11:30am. Addendum: 12/23/18 at 0958 by NORMA MONTEMAYOR when letting the patient know when [facility] would be out he disclosed that he will not be able to return to the home he had been staying in with his son and his girlfriend. He stated that they use methamphetamines and do not attend to their children (son, Jas Martinez). Report made to [facility] on Jas Martinez for parental concerns of drug use and home conditions as reported by the patient.
--- NOTE | 2018-12-23 10:10 | NUR ---
SPOKE WITH PT TO VERIFY THE MED REC THAT WAS PUT IN OVER THE WEEKEND WAS CORRECT ( MED REC SHOWED PT TOOK NO MEDICATIONS) THE PT HANDED ME A LIST OF MEDS FROM [facility]/ [facility] THAT "THEY GAVE HIM BUT I WILL NOT BE TAKING ANY OF THEM" I CALLED [facility] AND THE FOLLOWING MEDS WERE PICKED UP: 12-20-2018 TRAZODONE 150MG 1 HS #30 12-20-2018 MIRTAZAPINE 30MG 1 HS #30 12-20-2018 HYDROXYZINE 50M BID PRN ANXIETY 12-20-2018 GABAPENTIN 400M TID I DID NOT UPDATE THE MED REC SINCE PT WAS ADAMANT THEY HE WILL NOT BE TAKING THEM. OTC MEDS: NONE
--- NOTE | 2018-12-23 10:49 | Progress Note - Hospitalist ---
Subjective HPI/CC On Admission Date Seen by Provider: Dec 23, 2018 Time Seen by Provider: 10:45 Deepak Martinez is a 58-year-old male with past medical history of depression who presented with an intentional drug overdose of trazodone. He was recently discharged from an inpatient psychiatric stay at [facility] in [place]. He reports that he took the trazodone with the intent of ending his life. He reports continued suicidal ideation and intent. He has no homicidal ideations at this time. He does have a history of both suicidal and homicidal attempts. He has attempted to overdose on medications and has cut himself. He reports that his current social situation is poor. He says that his son recently kicked him out of his house and that he has been living in a car. He also has issues with methamphetamine abuse. He would like to seek help but cannot get into a rehabilitation facility at this time. He denies any fevers, chills, chest pain, dyspnea, cough, abdominal pain, nausea, vomiting, diarrhea, constipation, dysur ia, myalgias, arthralgias. Subjective/Events-last exam Pt is laying in bed with no physical complaints. States he overdosed this time because he found out that his ex girlfriend was telling everyone he did meth and he lost his job. He states he took all of his pills as a way to deal with that. He states he is still feeling homicidal and well do whatever it takes to "do what I need to do" and then "end up in long term for the rest of my life." He would not further elaborate on that. Objective Exam Vital Signs Vital Signs Date Time Temp Pulse Resp B/P (MAP) Pulse Ox O2 Delivery O2 Flow Rate FiO2 12/23/18 19:45 37.2 114 16 139/82 96 Room Air Capillary Refill : Less Than 3 Seconds General Appearance: No Apparent Distress, Chronically ill Respiratory: Lungs Clear, No Respiratory Distress Cardiovascular: Regular Rate, Rhythm, No Murmur Gastrointestinal: Normal Bowel Sounds, Soft Neurologic/Psychiatric: Alert, Oriented x3 Results/Procedures Lab Laboratory Tests 12/23/18 04:24 Patient resulted labs reviewed. Imaging: Reviewed Imaging Report Assessment/Plan Assessment and Plan Assess & Plan/Chief Complaint Intentional drug overdose Suicide attempt Homicidal Ideation Depression Anxiety Methamphetamine abuse Cannabis abuse Attempted suicide by overdosing on trazodone- now medically clear for discharge Consult SAVE line for evaluation Suicide precautions- sitter just outside room as well to monitor for elopement Will likely again require inpatient psychiatric treatment Diagnosis/Problems Diagnosis/Problems (1) Suicide attempt Status: Acute (2) Methamphetamine abuse Status: Chronic (3) Depression Status: Chronic Qualifiers: Depression Type: unspecified Qualified Codes: F32.9 - Major depressive disorder, single episode, unspecified (4) Intentional drug overdose Status: Acute Qualifiers: Encounter type: subsequent encounter Qualified Codes: T50.902D - Poisoning by unspecified drugs, medicaments and biological substances, intentional self- harm, subsequent encounter (5) History of suicide attempt Status: Chronic (6) Homicidal ideation Status: Acute Clinical Quality Measures DVT/VTE Risk/Contraindication: Risk Factor Score Per Nursin RFS Level Per Nursing on Admit: 2=Moderate NIDIA BURNS MD Dec 23, 2018 10:49
[2018-12-23] MEDS ORDERED: NICOTINE 7 MG (NICODERM) PATCH TD NR (15:15)
--- NOTE | 2018-12-23 15:30 | NUR ---
CM/SS spoke with patient again verifying that if an inpatient psych bed was found he would go, he states that he will. [facility] assessed and convinced the patient to go to inpatient facility voluntarily. Patient had stated to the RN he just wanted to leave, when I spoke to him again he now says that he will still go, he wants to show up the ex-girlfriend in court on the [place]. Patient reports he last used methamphetamines on last Sunday and marijuana on the day of admission. Patient will not be willing to go to inpatient psych placement in [place] as he has a misdemeanor warrant there. MH assessment in chart. Referral sent to [facility] and [facility].
[2018-12-23 16:49] VITALS: BP 165/83
[2018-12-23 19:45] VITALS: BP 139/82
[2018-12-23 23:47] VITALS: BP 127/69
--- NOTE | 2018-12-24 04:00 | NUR ---
Refused vital signs. Addendum: 12/24/18 at 0647 by TANO SUTTON RN Amended: Links added.
--- NOTE | 2018-12-24 05:00 | NUR ---
Lab awakened pt and pt refused lab draw. States he is healthy and going to transfer to [facility] today. Ambulatory in room and hallway with steady gait.
[2018-12-24 07:21] VITALS: BP 127/73
--- NOTE | 2018-12-24 08:10 | NUR ---
CM/SS [facility] is still reviewing referral, they do have a bed available. Patient did not want to consider [facility] as it is in [place] even if not in [place] where he has municipal warrants. Will continue to seek placement at inpatient psych facility.
[2018-12-24] MEDS: DOCUSATE SODIUM 100 MG (COLACE) CAP PO SCH ×2 (09:12→21:07)
[2018-12-24] MEDS: SENNA W/DOCUSATE (SENOKOT S) TABLET PO SCH ×2 (09:13→21:08)
--- NOTE | 2018-12-24 11:25 | NUR ---
CM/SS [facility] called and declined acceptance of the patient at this time, they feel that he would be better served by a dual diagnosis facility and due to his behaviors after leaving their facility. , RNing and Patient updated. Referral sent to [facility], [facility], and [facility].
--- NOTE | 2018-12-24 11:26 | Progress Note - Hospitalist ---
Subjective HPI/CC On Admission Date Seen by Provider: Dec 24, 2018 Time Seen by Provider: 11:19 Deepak Martinez is a 58-year-old male with past medical history of depression who presented with an intentional drug overdose of trazodone. He was recently discharged from an inpatient psychiatric stay at [facility] in [place]. He reports that he took the trazodone with the intent of ending his life. He reports continued suicidal ideation and intent. He has no homicidal ideations at this time. He does have a history of both suicidal and homicidal attempts. He has attempted to overdose on medications and has cut himself. He reports that his current social situation is poor. He says that his son recently kicked him out of his house and that he has been living in a car. He also has issues with methamphetamine abuse. He would like to seek help but cannot get into a rehabilitation facility at this time. He denies any fevers, chills, chest pain, dyspnea, cough, abdominal pain, nausea, vomiting, diarrhea, constipation, dysuria, myalgias, arthralgias. Subjective/Events-last exam Pt reports doing well. States "more mellow" today. States he did not sleep well but otherwise no complaints. Objective Exam Vital Signs Vital Signs Date Time Temp Pulse Resp B/P (MAP) Pulse Ox O2 Delivery O2 Flow Rate FiO2 12/24/18 07:21 37.0 71 20 127/73 98 Room Air Capillary Refill : Less Than 3 Seconds General Appearance: No Apparent Distress, WD/WN Respiratory: No Accessory Muscle Use, No Respiratory Distress Neurologic/Psychiatric: Alert, Oriented x3 Results/Procedures Lab Patient resulted labs reviewed. Imaging: Reviewed Imaging Report Assessment/Plan Assessment and Plan Assess & Plan/Chief Complaint Intentional drug overdose Suicide attempt Homicidal Ideation Depression Anxiety Methamphetamine abuse Cannabis abuse Attempted suicide by overdosing on trazodone- now medically clear for discharge, just awaiting psych placement Consult SAVE line for evaluation Suicide/homicide precautions- sitter just outside room as well to monitor for elopement Diagnosis/Problems Diagnosis/Problems (1) Suicide attempt Status: Acute (2) Methamphetamine abuse Status: Chronic (3) Depression Status: Chronic Qualifiers: Depression Type: unspecified Qualified Codes: F32.9 - Major depressive disorder, single episode, unspecified (4) Intentional drug overdose Status: Acute Qualifiers: Encounter type: subsequent encounter Qualified Codes: T50.902D - Poisoning by unspecified drugs, medicaments and biological substances, intentional self- harm, subsequent encounter (5) History of suicide attempt Status: Chronic (6) Homicidal ideation Status: Acute Clinical Quality Measures DVT/VTE Risk/Contraindication: Risk Factor Score Per Nursin RFS Level Per Nursing on Admit: 2=Moderate NIDIA BURNS MD Dec 24, 2018 11:26
[2018-12-24 11:38] VITALS: BP 117/59
--- NOTE | 2018-12-24 12:38 | NUR ---
[facility] stated they could not meet his needs, they declined placement. [facility] declined. Addendum: 12/24/18 at 1242 by NORMA MONTEMAYOR [place] [facility] - no beds available
--- NOTE | 2018-12-24 13:59 | NUR ---
Pastoral care visit.
[2018-12-24] MEDS ORDERED: NICOTINE PATCH REMOVAL TP SCH (15:00)
--- NOTE | 2018-12-24 15:19 | NUR ---
[facility] called after reviewing the patient information and asked if he could provide a down payment of $[phone]. Stated that he would not be able to as he is currently homeless and unemployed. Without the down payment they will not accept.
[2018-12-24 15:49] VITALS: BP 132/85
[2018-12-24] MEDS: NICOTINE 21 MG (NICODERM) PATCH TD PRN (17:08)
[2018-12-24 19:30] VITALS: BP 119/79
[2018-12-24 23:09] VITALS: BP 136/76
[2018-12-25] MEDS: DOCUSATE SODIUM 100 MG (COLACE) CAP PO SCH (08:30)
[2018-12-25] MEDS: SENNA W/DOCUSATE (SENOKOT S) TABLET PO SCH (08:30)
[2018-12-25] MEDS: NICOTINE 21 MG (NICODERM) PATCH TD PRN (08:31)
[2018-12-25] MEDS: NICOTINE PATCH REMOVAL TP SCH (08:31)
[2018-12-25 08:37] VITALS: BP 125/80
--- NOTE | 2018-12-25 08:58 | NUR ---
[facility] system down from [phone]
--- NOTE | 2018-12-25 09:17 | NUR ---
CM/SS still attempting to find inpatient psych placement for the patient. He stated this morning that he didn't know why still wasting time on trying to find placement, he says that once he gets to placement he will just check himself out. [facility] [place] [facility], [facility] [facility]. Updated , RN, and patient.
--- NOTE | 2018-12-25 13:00 | NUR ---
PCT reported to this RN that patient stated that "I just wants to be included in what's going on or not going on, so he doesn't get aggravated." This RN notified Dr. and foster care social worker of this. Both are keeping patient informed and updated patient. Patient is ok with this.
--- NOTE | 2018-12-25 13:19 | NUR ---
CM/SS [facility] has no [facility] Funded bed available. [facility] [place] has no bed available. [facility] has no beds available.
--- NOTE | 2018-12-25 13:20 | NUR ---
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 This was told to PCT after the came in to talk to him about other medicine options.
--- NOTE | 2018-12-25 13:25 | Progress Note - Hospitalist ---
Subjective HPI/CC On Admission Date Seen by Provider: Dec 25, 2018 Time Seen by Provider: 13:16 Deepak Martinez is a 58-year-old male with past medical history of depression who presented with an intentional drug overdose of trazodone. He was recently discharged from an inpatient psychiatric stay at [facility] in [place]. He reports that he took the trazodone with the intent of ending his life. He reports continued suicidal ideation and intent. He has no homicidal ideations at this time. He does have a history of both suicidal and homicidal attempts. He has attempted to overdose on medications and has cut himself. He reports that his current social situation is poor. He says that his son recently kicked him out of his house and that he has been living in a car. He also has issues with methamphetamine abuse. He would like to seek help but cannot get into a rehabilitation facility at this time. He denies any fevers, chills, chest pain, dyspnea, cough, abdominal pain, nausea, vomiting, diarrhea, constipation, dysuria, myalgias, arthralgias. Subjective/Events-last exam Pt is a laying in bed. Reports feeling well. Had a homicidal nightmare last night. Thinks it's due to his nicotine patch. Also complains of sciatic pain. Normally takes gabapentin for this. Tylenol is not helping. Objective Exam Vital Signs Vital Signs Date Time Temp Pulse Resp B/P (MAP) Pulse Ox O2 Delivery O2 Flow Rate FiO2 12/25/18 08:37 36.6 67 20 125/80 100 Room Air Capillary Refill : Less Than 3 Seconds General Appearance: No Apparent Distress, WD/WN Respiratory: Lungs Clear, No Accessory Muscle Use, No Respiratory Distress Cardiovascular: Regular Rate, Rhythm, No Murmur Neurologic/Psychiatric: Alert, Oriented x3 Results/Procedures Lab Patient resulted labs reviewed. Imaging: Reviewed Imaging Report Assessment/Plan Assessment and Plan Assess & Plan/Chief Complaint Intentional drug overdose Suicide attempt Homicidal Ideation Depression Anxiety Methamphetamine abuse Cannabis abuse Attempted suicide by overdosing on trazodone- now medically clear for discharge, just awaiting psych placement - SW has called multiple facilities and either no beds available or he has been declined - Continue to exhaust resources Suicide/homicide precautions- sitter just outside room as well to monitor for elopement Diagnosis/Problems Diagnosis/Problems (1) Suicide attempt Status: Acute (2) Methamphetamine abuse Status: Chronic (3) Depression Status: Chronic Qualifiers: Depression Type: unspecified Qualified Codes: F32.9 - Major depressive disorder, single episode, unspecified (4) Intentional drug overdose Status: Acute Qualifiers: Encounter type: subsequent encounter Qualified Codes: T50.902D - Poisoning by unspecified drugs, medicaments and biological substances, intentional self- harm, subsequent encounter (5) History of suicide attempt Status: Chronic (6) Homicidal ideation Status: Acute Clinical Quality Measures DVT/VTE Risk/Contraindication: Risk Factor Score Per Nursin RFS Level Per Nursing on Admit: 2=Moderate NIDIA BURNS MD Dec 25, 2018 13:25
[2018-12-25 15:18] VITALS: BP 126/63
[2018-12-25 23:35] VITALS: BP 96/67
[2018-12-26] MEDS: SENNA W/DOCUSATE (SENOKOT S) TABLET PO SCH ×3 (00:49→21:14)
[2018-12-26] MEDS: DOCUSATE SODIUM 100 MG (COLACE) CAP PO SCH ×3 (00:49→21:14)
[2018-12-26] MEDS: NICOTINE PATCH REMOVAL TP SCH (07:39)
--- NOTE | 2018-12-26 07:39 | NUR ---
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
[2018-12-26 08:00] VITALS: BP 107/71
[2018-12-26] MEDS: NICOTINE 21 MG (NICODERM) PATCH TD PRN (09:13)
--- NOTE | 2018-12-26 13:32 | NUR ---
CM/SS update on psych bed availability for possible placement. [facility] no expected discharges [facility]- no beds available at this time- had fax referral information and will call if they have a discharge [facility] Ad[facility] was in patient room- to call back later
--- NOTE | 2018-12-26 14:43 | Progress Note - Hospitalist ---
Subjective HPI/CC On Admission Date Seen by Provider: Dec 26, 2018 Time Seen by Provider: 14:32 Deepak Martinez is a 58-year-old male with past medical history of depression who presented with an intentional drug overdose of trazodone. He was recently discharged from an inpatient psychiatric stay at [facility] in [place]. He reports that he took the trazodone with the intent of ending his life. He reports continued suicidal ideation and intent. He has no homicidal ideations at this time. He does have a history of both suicidal and homicidal attempts. He has attempted to overdose on medications and has cut himself. He reports that his current social situation is poor. He says that his son recently kicked him out of his house and that he has been living in a car. He also has issues with methamphetamine abuse. He would like to seek help but cannot get into a rehabilitation facility at this time. He denies any fevers, chills, chest pain, dyspnea, cough, abdominal pain, nausea, vomiting, diarrhea, constipation, dysuria, myalgias, arthralgias. Subjective/Events-last exam Pt reports doing well. No complaints. Discussed plan with patient who is understanding of process. No other complaints. Objective Exam Vital Signs Vital Signs Date Time Temp Pulse Resp B/P (MAP) Pulse Ox O2 Delivery O2 Flow Rate FiO2 12/26/18 08:00 36.0 60 20 107/71 99 Room Air Capillary Refill : Less Than 3 Seconds General Appearance: No Apparent Distress, Thin Respiratory: No Accessory Muscle Use, No Respiratory Distress Neurologic/Psychiatric: Alert, Oriented x3 Results/Procedures Lab Patient resulted labs reviewed. Imaging: Reviewed Imaging Report Assessment/Plan Assessment and Plan Assess & Plan/Chief Complaint Intentional drug overdose Suicide attempt Homicidal Ideation Depression Anxiety Methamphetamine abuse Cannabis abuse Attempted suicide by overdosing on trazodone- now medically clear for discharge, just awaiting psych placement - SW has called multiple facilities and either no beds available or he has been declined - Continue to exhaust resources- so far has been declined by [facility], [facility], [facility], [facility], [facility]. Currently no beds available at [facility] - Clinically improving, will consider rescreening by [facility] line for possible outpatient follow up Suicide/homicide precautions- sitter just outside room as well to monitor for elopement Diagnosis/Problems Diagnosis/Problems (1) Suicide attempt Status: Acute (2) Methamphetamine abuse Status: Chronic (3) Depression Status: Chronic Qualifiers: Depression Type: unspecified Qualified Codes: F32.9 - Major depressive disorder, single episode, unspecified (4) Intentional drug overdose Status: Acute Qualifiers: Encounter type: subsequent encounter Qualified Codes: T50.902D - Poisoning by unspecified drugs, medicaments and biological substances, intentional self- harm, subsequent encounter (5) History of suicide attempt Status: Chronic (6) Homicidal ideation Status: Acute Clinical Quality Measures DVT/VTE Risk/Contraindication: Risk Factor Score Per Nursin RFS Level Per Nursing on Admit: 2=Moderate NIDIA BURNS MD Dec 26, 2018 2:43 pm
[2018-12-26 15:46] VITALS: BP 123/76
--- NOTE | 2018-12-26 16:03 | NUR ---
CM/SS patient asked with fha underwriter for an update when in call. Discussed that was waiting for a response from [facility]. That if did not hear from them this day then would have the [facility] Line re-evaluate tomorrow and plan from there. He stated that he is not able to stay with his son, his son did not get his car that had ran out of gas, so patient feels it was towed. He thought that maybe he could stay with a cousin here in [place], encouraged him to call and discuss this possibility.
[2018-12-27] VITALS: BP 106/66
[2018-12-27 08:00] VITALS: BP 112/62
[2018-12-27] MEDS: SENNA W/DOCUSATE (SENOKOT S) TABLET PO SCH ×2 (08:26→20:00)
[2018-12-27] MEDS: DOCUSATE SODIUM 100 MG (COLACE) CAP PO SCH ×2 (08:26→20:00)
[2018-12-27] MEDS: NICOTINE PATCH REMOVAL TP SCH (08:27)
[2018-12-27] MEDS: NICOTINE 21 MG (NICODERM) PATCH TD PRN (08:27)
--- NOTE | 2018-12-27 09:35 | NUR ---
CM/SS called [facility] and they will be out this day to rescreen the patient. Updated RN and patient that [facility] Line would be out. Patient stated that he is wanting to just go and will sign whatever he needs to to release liability to the hospital. He stated that he is not going to be able to stay with his son and that had contacted his cousin, she was not going to let him stay their either. Discussed shelters with him, he is not willing to go to a homeless longterm.
--- NOTE | 2018-12-27 11:54 | NUR ---
CM/[facility] was out and re-screened the patient. [facility] was able to get [facility] to move the patient bed date up to 12/30 if patient could remain in the hospital until then. [facility] will provide transport on Sunday to [facility].
--- NOTE | 2018-12-27 15:01 | Progress Note - Hospitalist ---
Subjective HPI/CC On Admission Date Seen by Provider: Dec 27, 2018 Time Seen by Provider: 14:58 Deepak Martinez is a 58-year-old male with past medical history of depression who presented with an intentional drug overdose of trazodone. He was recently discharged from an inpatient psychiatric stay at [facility] in [place]. He reports that he took the trazodone with the intent of ending his life. He reports continued suicidal ideation and intent. He has no homicidal ideations at this time. He does have a history of both suicidal and homicidal attempts. He has attempted to overdose on medications and has cut himself. He reports that his current social situation is poor. He says that his son recently kicked him out of his house and that he has been living in a car. He also has issues with methamphetamine abuse. He would like to seek help but cannot get into a rehabilitation facility at this time. He denies any fevers, chills, chest pain, dyspnea, cough, abdominal pain, nausea, vomiting, diarrhea, constipation, dysuria, myalgias, arthralgias. Objective Exam Vital Signs Vital Signs Date Time Temp Pulse Resp B/P (MAP) Pulse Ox O2 Delivery O2 Flow Rate FiO2 12/27/18 08:00 36.9 67 16 112/62 97 Room Air Capillary Refill : Less Than 3 Seconds General Appearance: No Apparent Distress, Anxious, Chronically ill Neurologic/Psychiatric: Alert, Oriented x3 Results/Procedures Lab Patient resulted labs reviewed. Imaging: Reviewed Imaging Report Assessment/Plan Assessment and Plan Assess & Plan/Chief Complaint Intentional drug overdose Suicide attempt Homicidal Ideation Depression Anxiety Methamphetamine abuse Cannabis abuse Attempted suicide by overdosing on trazodone- now medically clear for discharge, just awaiting psych placement - has called multiple facilities and either no beds available or he has been declined - Social work has essentially exahausted all options- so far has been declined by [facility], [facility], [facility], [facility], [facility] - Clinically improving- S[facility] line contacted to rescreen - Rescreened and still not safe for discharge home but [facility] was able to facilitate earlier admission to [facility] on 12/30 - Maintain sitter but am allowing to ambulate in his hallway to help with anxiety Suicide/homicide precautions- sitter just outside room as well to monitor for elopement Diagnosis/Problems Diagnosis/Problems (1) Suicide attempt Status: Acute (2) Methamphetamine abuse Status: Chronic (3) Depression Status: Chronic Qualifiers: Depression Type: unspecified Qualified Codes: F32.9 - Major depressive disorder, single episode, unspecified (4) Intentional drug overdose Status: Acute Qualifiers: Encounter type: subsequent encounter Qualified Codes: T50.902D - Poisoning by unspecified drugs, medicaments and biological substances, intentional self- harm, subsequent encounter (5) History of suicide attempt Status: Chronic (6) Homicidal ideation Status: Acute Clinical Quality Measures DVT/VTE Risk/Contraindication: Risk Factor Score Per Nursin RFS Level Per Nursing on Admit: 2=Moderate NIDIA BURNS MD Dec 27, 2018 3:01 pm
[2018-12-27 15:54] VITALS: BP 116/69
[2018-12-27 23:57] VITALS: BP 114/76
[2018-12-28 08:00] VITALS: BP 129/62
[2018-12-28] MEDS: DOCUSATE SODIUM 100 MG (COLACE) CAP PO SCH ×2 (09:17→19:41)
[2018-12-28] MEDS: SENNA W/DOCUSATE (SENOKOT S) TABLET PO SCH ×2 (09:17→19:42)
[2018-12-28] MEDS: NICOTINE PATCH REMOVAL TP SCH (09:17)
[2018-12-28] MEDS: NICOTINE 21 MG (NICODERM) PATCH TD PRN (09:17)
--- NOTE | 2018-12-28 10:20 | Progress Note - Hospitalist ---
Subjective HPI/CC On Admission Date Seen by Provider: Dec 28, 2018 Time Seen by Provider: 10:16 Deepak Martinez is a 58-year-old male with past medical history of depression who presented with an intentional drug overdose of trazodone. He was recently discharged from an inpatient psychiatric stay at [facility] in [place]. He reports that he took the trazodone with the intent of ending his life. He reports continued suicidal ideation and intent. He has no homicidal ideations at this time. He does have a history of both suicidal and homicidal attempts. He has attempted to overdose on medications and has cut himself. He reports that his current social situation is poor. He says that his son recently kicked him out of his house and that he has been living in a car. He also has issues with methamphetamine abuse. He would like to seek help but cannot get into a rehabilitation facility at this time. He denies any fevers, chills, chest pain, dyspnea, cough, abdominal pain, nausea, vomiting, diarrhea, constipation, dysuria, myalgias, arthralgias. Subjective/Events-last exam Pt is standing outside of his room talking with aide. Denies any complaints. Feeling better. Objective Exam Vital Signs Vital Signs Date Time Temp Pulse Resp B/P (MAP) Pulse Ox O2 Delivery O2 Flow Rate FiO2 12/28/18 08:00 36.8 78 20 129/62 98 Room Air Capillary Refill : Less Than 3 Seconds General Appearance: No Apparent Distress, WD/WN, Anxious Respiratory: No Accessory Muscle Use, No Respiratory Distress Neurologic/Psychiatric: Alert, Oriented x3 Results/Procedures Lab Patient resulted labs reviewed. Imaging: Reviewed Imaging Report Assessment/Plan Assessment and Plan Assess & Plan/Chief Complaint Intentional drug overdose Suicide attempt Homicidal Ideation Depression Anxiety Methamphetamine abuse Cannabis abuse Attempted suicide by overdosing on trazodone- now medically clear for discharge, just awaiting psych placement - Social work has essentially exhausted all options- so far has been declined by [facility], [facility], [place], [facility] [place], [facility], [facility], [place] [facility] - Clinically improving- [facility] line contacted to rescreen - Rescreened 12/27 and still not safe for discharge home but Adriel thompson) was able to facilitate earlier admission to [facility] on 12/30 - Maintain sitter but am allowing to ambulate in his hallway to help with anxiety Suicide/homicide precautions- sitter just outside room as well to monitor for elopement Diagnosis/Problems Diagnosis/Problems (1) Suicide attempt Status: Acute (2) Methamphetamine abuse Status: Chronic (3) Depression Status: Chronic Qualifiers: Depression Type: unspecified Qualified Codes: F32.9 - Major depressive disorder, single episode, unspecified (4) Intentional drug overdose Status: Acute Qualifiers: Encounter type: subsequent encounter Qualified Codes: T50.902D - Poisoning by unspecified drugs, medicaments and biological substances, intentional self- harm, subsequent encounter (5) History of suicide attempt Status: Chronic (6) Homicidal ideation Status: Acute Clinical Quality Measures DVT/VTE Risk/Contraindication: Risk Factor Score Per Nursin RFS Level Per Nursing on Admit: 2=Moderate NIDIA BURNS MD Dec 28, 2018 10:19 am
[2018-12-28 16:00] VITALS: BP 104/64
[2018-12-28 23:47] VITALS: BP 127/76
[2018-12-29 08:00] VITALS: BP 133/61
[2018-12-29] MEDS: SENNA W/DOCUSATE (SENOKOT S) TABLET PO SCH ×2 (08:30→19:45)
[2018-12-29] MEDS: NICOTINE PATCH REMOVAL TP SCH (08:30)
[2018-12-29] MEDS: DOCUSATE SODIUM 100 MG (COLACE) CAP PO SCH ×2 (08:30→19:45)
[2018-12-29] MEDS: NICOTINE 21 MG (NICODERM) PATCH TD PRN (08:31)
--- NOTE | 2018-12-29 11:18 | Progress Note - Hospitalist ---
Subjective HPI/CC On Admission Date Seen by Provider: Dec 29, 2018 Time Seen by Provider: 11:17 Deepak Martinez is a 58-year-old male with past medical history of depression who presented with an intentional drug overdose of trazodone. He was recently discharged from an inpatient psychiatric stay at [facility] in [place]. He reports that he took the trazodone with the intent of ending his life. He reports continued suicidal ideation and intent. He has no homicidal ideations at this time. He does have a history of both suicidal and homicidal attempts. He has attempted to overdose on medications and has cut himself. He reports that his current social situation is poor. He says that his son recently kicked him out of his house and that he has been living in a car. He also has issues with methamphetamine abuse. He would like to seek help but cannot get into a rehabilitation facility at this time. He denies any fevers, chills, chest pain, dyspnea, cough, abdominal pain, nausea, vomiting, diarrhea, constipation, dysuria, myalgias, arthralgias. Subjective/Events-last exam Pt reports doing well. Had a good night. Concerned about getting clothes from his car tomorrow for transport. Objective Exam Vital Signs Vital Signs Date Time Temp Pulse Resp B/P (MAP) Pulse Ox O2 Delivery O2 Flow Rate FiO2 12/29/18 08:00 37.2 76 20 133/61 96 Room Air Capillary Refill : Less Than 3 Seconds General Appearance: No Apparent Distress, Anxious Respiratory: No Accessory Muscle Use, No Respiratory Distress Neurologic/Psychiatric: Alert, Oriented x3 Results/Procedures Lab Patient resulted labs reviewed. Imaging: Reviewed Imaging Report Assessment/Plan Assessment and Plan Assess & Plan/Chief Complaint Intentional drug overdose Suicide attempt Homicidal Ideation Depression Anxiety Methamphetamine abuse Cannabis abuse Attempted suicide by overdosing on trazodone- now medically clear for discharge, just awaiting psych placement - Social work has essentially exhausted all options- so far has been declined by [facility], [facility], [place], [facility], [facility], [facility], [place] Valerie - Clinically improving- [facility] line contacted to rescreen - Rescreened 12/27 and still not safe for discharge home but Adriel thompson) was able to facilitate earlier admission to [facility] on 12/30 - Maintain sitter but am allowing to ambulate in his hallway to help with anxiety - Offered antianxiety meds but patient declines - Plan for transfer tomorrow Suicide/homicide precautions- sitter just outside room as well to monitor for elopement Diagnosis/Problems Diagnosis/Problems (1) Suicide attempt Status: Acute (2) Methamphetamine abuse Status: Chronic (3) Depression Status: Chronic Qualifiers: Depression Type: unspecified Qualified Codes: F32.9 - Major depressive disorder, single episode, unspecified (4) Intentional drug overdose Status: Acute Qualifiers: Encounter type: subsequent encounter Qualified Codes: T50.902D - Poisoning by unspecified drugs, medicaments and biological substances, intentional self- harm, subsequent encounter (5) History of suicide attempt Status: Chronic (6) Homicidal ideation Status: Acute Clinical Quality Measures DVT/VTE Risk/Contraindication: Risk Factor Score Per Nursin RFS Level Per Nursing on Admit: 2=Moderate NIDIA BURNS MD Dec 29, 2018 11:18 am
[2018-12-29] MEDS: hydrOXYzine (ATARAX) 10 MG TAB PO PRN (14:00)
[2018-12-29 15:22] VITALS: BP 122/76
[2018-12-30] VITALS: BP 128/79
[2018-12-30 05:49] VITALS: BP 116/71
[2018-12-30] MEDS: NICOTINE PATCH REMOVAL TP SCH (07:47)
[2018-12-30] MEDS: DOCUSATE SODIUM 100 MG (COLACE) CAP PO SCH (07:47)
[2018-12-30] MEDS: SENNA W/DOCUSATE (SENOKOT S) TABLET PO SCH (07:48)
[2018-12-30] MEDS: hydrOXYzine (ATARAX) 10 MG TAB PO PRN (08:13)
[2018-12-30] MEDS: NICOTINE 21 MG (NICODERM) PATCH TD PRN (08:13)
--- NOTE | 2018-12-30 08:28 | NUR ---
CM/SS transportation from [facility] here for the patient, they are transporting to [facility] in [place]. Patient was trying to talk him into stopping at his son's home along the way. Discussed with the patient that transportation will be straight to [place] with no stops, he was ok with this. Patient was thankful for the help and patience he received here.
[2018-12-30 10:04] VITALS: BP 116/71
--- NOTE | 2018-12-30 15:42 | Discharge Summary ---
Discharge Summary Hospital Course Problems/Dx: (1) Suicide attempt Status: Acute (2) Methamphetamine abuse Status: Chronic (3) Depression Status: Chronic Qualifiers: Qualified Codes: F32.9 - Major depressive disorder, single episode, unspecified (4) Intentional drug overdose Status: Acute Qualifiers: Qualified Codes: T50.902D - Poisoning by unspecified drugs, medicaments and biological substances, intentional self-harm, subsequent encounter (5) History of suicide attempt Status: Chronic (6) Homicidal ideation Status: Acute Hospital Course Date of Admission: Dec 21, 2018 at 18:47 Admission Diagnosis : intentional overdose of trazodone Family Physician/Provider: Arlet Gaston Physician Date of Discharge: 12/30/18 Discharge Diagnosis: intentional overdose of trazodone Hospital Course: Deepak Martinez is a 58-year-old male with past medical history of depression and suicide attempts who presented following an intentional overdose of trazodone. He was initially admitted to the intensive care unit for monitoring. He remained medically stable. He continued to have suicidal ideation and intent. He also displayed homicidal ideations. He has a history of substance abuse and alcohol abuse. He was transferred to [facility] on 12/30. Labs and Pending Lab Test: Microbiology 12/21/18 MRSA Screen - Final, Complete MRSA not isolated Home Meds Active No Active Prescriptions or Reported Medications Assessment/Pt Instructions See separate note "discharge instructions" Discharge Planning: >30 minutes discharge planning Discharge Instructions Activity as Tolerated: Yes Discharge Physical Examination Vital Signs Vital Signs Date Time Temp Pulse Resp B/P (MAP) Pulse Ox O2 Delivery O2 Flow Rate FiO2 12/30/18 10:04 36.8 72 18 116/71 98 Room Air General Appearance: No Apparent Distress, WD/WN Respiratory: No Respiratory Distress Cardiovascular: Regular Rate, Rhythm Extremity: Normal Inspection, No Pedal Edema Skin: Normal Color, Warm/Dry Neurologic/Psychiatric: Alert; No Disoriented Allergies: Coded Allergies: codeine (Verified Allergy, Unknown, 12/11/18) Discharge Summary Date of Admission Dec 21, 2018 at 18:47 Date of Discharge Dec 30, 2018 at 09:00 Discharge Date: Dec 30, 2018 Discharge Time: 10:00 Admission Diagnosis Intentional drug overdose Discharge Diagnosis Intentional drug overdose Suicide attempt Depression Anxiety Methamphetamine abuse Cannabis abuse Attempted suicide by overdosing on trazodone ER contacted CCU recommended monitoring for sedation and [employer] depression Alert and oriented this morning, hemodynamically stable on room air Transition to med/surg Consult behavioral health Suicide precautions Tele-sitter ordered Will likely require inpatient psychiatric treatment (1) Suicide attempt Status: Acute (2) Methamphetamine abuse Status: Chronic (3) Depression Status: Chronic Qualifiers: Qualified Codes: F32.9 - Major depressive disorder, single episode, unspecified (4) Intentional drug overdose Status: Acute Qualifiers: Qualified Codes: T50.902D - Poisoning by unspecified drugs, medicaments and biological substances, intentional self-harm, subsequent encounter (5) History of suicide attempt Status: Chronic (6) Homicidal ideation Status: Acute Clinical Quality Measures DVT/VTE Risk/Contraindication: Risk Factor Score Per Nursin RFS Level Per Nursing on Admit: 2=Moderate MARIELOS CALLAHAN MD Dec 30, 2018 15:42
== END 2018-12-30 09:00 ==
LOC: EDUNIT# 17:15 → ER 17:21 → ICU 18:47 → UNDOADMOB 18:47 → ICU 20:06 → 4TH 12-22 09:32 → ICU 12-22 09:32 → UNDODISOB 12-30 09:00
PROVIDERS: ADMIT Internal Medicine; ATTEND Internal Medicine
DX: T43.212A Poisoning by selective serotonin and norepinephrine reuptake inhibitors, intentional self-harm, initial encounter (principal); T14.91XA Suicide attempt, initial encounter; R45.851 Suicidal ideations; F17.210 Nicotine dependence, cigarettes, uncomplicated; F41.9 Anxiety disorder, unspecified; F31.9 Bipolar disorder, unspecified; F12.10 Cannabis abuse, uncomplicated; R45.850 Homicidal ideations; Z88.5 Allergy status to narcotic agent; Z91.5 Personal history of self-harm; Z90.89 Acquired absence of other organs
CPT/HCPCS: 36415; 71045; 80048; 80053; 80306; 80320; 80329; 81000; 83735; 84100; 85025; 87081; 93005; 93041; 96360; 96361; G0378

== ENCOUNTER → 2020-03-24 | Outpatient (CLI) | payer SELFPAY ==
--- NOTE | 2020-03-24 09:12 | Diagnostic Imaging Report ---
CLINICAL INDICATION: Patient has chronic low back pain due to years of wear and tear. EXAM: MRI of the lumbar spine performed without IV contrast. Sagittal T2, sagittal T1, sagittal T2 fat-sat, and axial T2. COMPARISON: None. FINDINGS: There is no acute lumbar spine fracture or dislocation. The visualized portions of the distal thoracic spinal cord, conus medullaris, and cauda equina nerve roots are unremarkable. The conus medullaris tip is seen at the L1-L2 intervertebral level. There is no significant paraspinal soft tissue abnormality. There are small spurs involving the lumbar spine. T11-T12: There is a small diffuse disc bulge with a small to moderate sized anterior disc extrusion/herniation component. There is moderate loss of disc space height. There is mild bilateral neuroforaminal narrowing. There is no significant central canal narrowing. T12-L1: There is a subtle left paracentral disc bulge. There is no significant central spinal canal or neuroforaminal narrowing. L1-L2: There is no significant central spinal canal or neuroforaminal narrowing. L2-L3: There is no significant central spinal canal or neuroforaminal narrowing. L3-L4: There is a mild diffuse disc bulge. There is severe right facet arthropathy and moderate left facet arthropathy. There is mild to moderate bilateral neuroforaminal narrowing. There is prominent posterior epidural fat. There is moderate to severe central canal stenosis. L4-L5: There is a mild diffuse disc bulge with severe bilateral facet arthropathy/hypertrophy. There is ligamentum flavum buckling and prominent posterior epidural fat. There is severe central canal stenosis. There is moderate bilateral neuroforaminal narrowing. L5-S1: There is a moderate sized broad posterior disc protrusion/herniation with a slightly prominent right paracentral disc herniation component. There is concern for encroachment upon the non exited bilateral S1 nerve roots. There is moderate to severe right neuroforaminal narrowing and moderate left neuroforaminal narrowing. There is mild central canal narrowing. IMPRESSION: 1. There is multilevel lumbar spine degenerative disease which is most pronounced involving the lower lumbar region. 2. There is prominent posterior epidural fat seen from the L3 through L5 level which contributes to central canal stenosis. 3. There is L4-L5 diffuse disc bulge and severe facet arthropathy/hypertrophy which causes severe central canal stenosis and moderate bilateral neuroforaminal narrowing. 4. There is L3-L4 diffuse disc bulge and bilateral facet arthropathy which causes moderate to severe central canal stenosis and mild to moderate bilateral neuroforaminal narrowing. 5. There is L5-S1 broad posterior disc herniation with concern for encroachment upon the non exited bilateral S1 nerve roots. There is moderate to severe right neuroforaminal narrowing and moderate left neuroforaminal narrowing. Dictated by: Dictated on workstation # [id number]
== END ==
LOC: RAD 08:00
PROVIDERS: ATTEND Nurse Practitioner Community Health
DX: M47.26 Other spondylosis with radiculopathy, lumbar region (principal); M51.16 Intervertebral disc disorders with radiculopathy, lumbar region; M51.27 Other intervertebral disc displacement, lumbosacral region; M48.061 Spinal stenosis, lumbar region without neurogenic claudication; M48.07 Spinal stenosis, lumbosacral region
CPT/HCPCS: 72148

== ENCOUNTER 2020-11-13 17:41 | Emergency (ER) | payer SELFPAY ==
[~2020-11-13] VITALS: Ht 175 cm; Wt 95.0 kg
--- NOTE | 2020-11-13 18:33 | Diagnostic Imaging Report ---
EXAMINATION: Chest radiograph, portable AP view. DATE: 11/13/2020 6:27 PM. INDICATION: 60-year-old male, cough. COMPARISON: December 22, 2018. FINDINGS: There is a normal variant azygous lobe. Heart size and mediastinal contours are unchanged. There is no identified pneumothorax. There is no large pleural effusion. There is no identified interval focal airspace consolidation. IMPRESSION: No identified interval acute cardiopulmonary abnormality. Dictated by: Dictated on workstation # [id number]
[2020-11-13] MEDS ORDERED: RT-ALBUTEROL INHALER HFA (VENTOLIN HFA) 18 GM IH ONE (18:36)
--- NOTE | 2020-11-13 19:04 | ED Cough/URI ---
General Chief Complaint: Cough/Cold/Flu Symptoms Stated Complaint: SOA Nursing Triage Note: PT TO ED W/ C/O COUGH ONSET YESTERDAY. PT REPORTS SMOKES 2 PPD CURRENTLY ET HAS RECENTLY STARTED VAPING MARIJUANA ET STATES "THAT'S WHEN HE STARTED GETTING SOB". NO OTHER C/O VOICED. DENIES BEING EXPOSED TO COVID AT THIS TIME. Allergies and Home Medications Allergies Coded Allergies: codeine (Verified Allergy, Unknown, 12/11/18) Home Medications No Active Prescriptions or Reported Meds Past Ncrnktd-Anrorz-Heovor Hx Patient Social History Tobacco Use?: Yes Tobacco type used: Cigarettes Smoking Status: Current Everyday Smoker E-Cig or Vaping type used: Marijuana Substance use?: Yes Substance type: Marijuana Substance frequency: Couple times a week Alcohol Use?: No Pt feels they are or have been: No Seasonal Allergies Seasonal Allergies: No Past Medical History Surgery/Hospitalization HX: DENIED Surgeries: Yes (cararacts) Appendectomy Respiratory: No Cardiac: No Neurological: No Genitourinary: No Gastrointestinal: No Musculoskeletal: No Endocrine: No HEENT: No Cataract Cancer: No Psychosocial: Yes Suicide Attempts, Depression Integumentary: No Blood Disorders: No Physical Exam Vital Signs - First Documented Capillary Refill : Less Than 3 Seconds Height: 5'9.00" Weight: 185lbs. 2.0oz. 83.959320va; 31.00 BMI Method:Stated Progress/Results/Core Measures Suspected Sepsis SIRS Temperature: Pulse: 76 Respiratory Rate: 20 Blood Pressure 140 /85 Mean: 103 Results/Orders Lab Results Laboratory Tests Test 11/13/20 18:04 Range/Units Influenza Type A (RT-PCR) Not Detected Not Detecte Influenza Type B (RT-PCR) Not Detected Not Detecte SARS-CoV-2 RNA (RT-PCR) Not Detected Not Detecte My Orders Orders - MARITTA LORA FLOOR TRADER Covid 19 Inhouse Test (11/13/20 18:06) Influenza A And B By Pcr (11/13/20 18:06) Chest 1 View, Ap/Pa Only (11/13/20 18:06) Albuterol Inhaler (Ventolin Hfa) (11/13/20 18:36) Medications Given in ED Current Medications Medications Dose Ordered Sig/Jaime Route Start Time Stop Time Status Last Admin Dose Admin Albuterol Sulfate 18 gm STK-MED ONCE IH 11/13/20 18:36 11/13/20 18:38 DC 11/13/20 18:41 18 GM Vital Signs/I&O 11/13/20 11/13/20 18:27 18:27 Temp 36.8 Pulse 76 Resp 20 B/P (MAP) 140/85 (103) Pulse Ox 95 O2 Delivery Room Air Room Air Capillary Refill : Less Than 3 Seconds Blood Pressure Mean: 103 Departure Impression Primary Impression: COPD exacerbation Disposition: HOME, SELF-CARE Condition: Improved Departure-Patient Inst. Decision time for Depature: 18:59 Referrals: NO,LOCAL PHYSICIAN (PCP/Family) Primary Care Physician Patient Instructions: COPD Exacerbation, Adult ED Add. Discharge Instructions: 1. Take Prednisone 50mg by mouth daily for the next 4 days. 2. Use Albuterol inhaler 2 puffs every 4 hours as needed for wheezing or shortness of air. 3. Take Azithromycin as directed and complete full course. 4. Follow up with your doctor next week. 5. Return for any new, concerning, or worsening symptoms. All discharge instructions reviewed with patient and/or family. Voiced understanding. Scripts Azithromycin (Azithromycin) 250 Mg Tablet 250 MG PO DAILY for 4 Days, #4 TAB 0 Refills Prov: MARTITA LORA FLOOR TRADER 11/13/20 Prednisone (Prednisone) 50 Mg Tab 50 MG PO DAILY for 4 Days, #4 TAB 0 Refills Prov: MARTITA LORA FLOOR TRADER 11/13/20 MARTITA LORA FLOOR TRADER Nov 13, 2020 19:04
[2020-11-13] MEDS ORDERED: PRD50T PO (19:05)
[2020-11-13] MEDS ORDERED: AZIT250T12 PO (19:05)
[2020-11-13 19:09] VITALS: BP 113/72
[2020-11-13] MEDS ORDERED: predniSONE 20 MG TAB PO ONE (19:15)
[2020-11-13] MEDS ORDERED: AZITHROMYCIN 250 MG TAB (ZITHROMAX) PO ONE (19:15)
== END 2020-11-13 19:09 | disposition home or self-care (01) ==
LOC: EDUNIT# 17:41 → ER 17:43
DX: J44.1 Chronic obstructive pulmonary disease with (acute) exacerbation (principal); F17.210 Nicotine dependence, cigarettes, uncomplicated; Z20.822 Contact with and (suspected) exposure to COVID-19
CPT/HCPCS: 71045; 87636

== ENCOUNTER → 2021-04-21 | Outpatient (CLI) | payer SELFPAY ==
[~2021-04-21] MED LIST changes: +AZIT250T12 PO; +PRD50T PO; +RT-ALBUTEROL SULF 2.5 MG/3 ML PRE-MIX VIAL INH ONE
== END ==
LOC: RT 10:45
PROVIDERS: ATTEND Nurse Practitioner Family
DX: J44.9 Chronic obstructive pulmonary disease, unspecified (principal)
CPT/HCPCS: 94060; 94726; 94729

== ENCOUNTER 2022-03-30 11:28 | Emergency (ER) | payer MEDICAID ==
[~2022-03-30] VITALS: Ht 175 cm; Wt 101.0 kg
[~2022-03-30 11:28] MED LIST changes: -RT-ALBUTEROL SULF 2.5 MG/3 ML PRE-MIX VIAL INH ONE
[2022-03-30 12:28] VITALS: BP 166/99
== END 2022-03-30 14:39 | disposition left against medical advice (07) ==
LOC: EDUNIT# 11:28 → ER 11:30
DX: M25.512 Pain in left shoulder (principal); Z28.311 Partially vaccinated for COVID-19

== ENCOUNTER 2022-05-17 15:59 | Emergency (ER) | payer MEDICARE, MEDICAID ==
[~2022-05-17] VITALS: Ht 175.3 cm; Wt 97.5 kg
[2022-05-17 16:20] LABS: BASOPHILS # (AUTO) 0.1 10^3/uL (0.0-0.1); BASOPHILS % (AUTO) 1 % (0-10); EOSINOPHILS # (AUTO) 0.4 10^3/uL (0.0-0.3); EOSINOPHILS % (AUTO) 2 % (0-10); HEMATOCRIT 49 % (40-54); HEMOGLOBIN 16.5 g/dL (13.3-17.7); LYMPHOCYTES # (AUTO) 4.6 10^3/uL (1.0-4.0); LYMPHOCYTES % (AUTO) 28 % (12-44); MEAN CORPUSCULAR HEMOGLOBIN 30 pg (25-34); MEAN CORPUSCULAR HGB CONC 34 g/dL (32-36); MEAN CORPUSCULAR VOLUME 89 fL (80-99); MEAN PLATELET VOLUME 9.5 fL (9.0-12.2); MONOCYTES % (AUTO) 6 % (0-12); NEUTROPHILS # (AUTO) 10.4 10^3/uL (1.8-7.8); NEUTROPHILS % (AUTO) 63 % (42-75); PLATELET COUNT 295 10^3/uL (130-400); WHITE BLOOD COUNT 16.6 10^3/uL (4.3-11.0)
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
[2022-05-17 16:25] LABS: ALBUMIN 4.5 GM/DL (3.2-4.5)
[2022-05-17 16:26] LABS: POTASSIUM 4.2 MMOL/L (3.6-5.0)
[2022-05-17 16:27] LABS: CALCIUM 9.6 MG/DL (8.5-10.1)
[2022-05-17 16:28] LABS: TOTAL PROTEIN 7.2 GM/DL (6.4-8.2)
[2022-05-17 16:30] LABS: BILIRUBIN,TOTAL 0.3 MG/DL (0.1-1.0); INR 0.9 (0.8-1.4)
[2022-05-17 16:32] LABS: CREATININE SERUM 1.05 MG/DL (0.60-1.30)
[2022-05-17 16:34] LABS: MAGNESIUM 2.2 MG/DL (1.6-2.4)
--- NOTE | 2022-05-17 16:40 | Diagnostic Imaging Report ---
INDICATION: Chest pain. TECHNIQUE: Single view chest 4:36 PM. CORRELATION STUDY: 11/13/2020 FINDINGS: The heart size, mediastinal configuration and pulmonary vascularity are within normal limits. The lungs are clear with no consolidating infiltrate. Azygos lobe is present. There is no significant effusion or pneumothorax. IMPRESSION: 1. Negative appearing single view chest. Dictated by: Dictated on workstation # [id number]
[2022-05-17 16:52] LABS: EOSINOPHILS % (MANUAL) 3 %; LYMPHOCYTES % (MANUAL) 13 %; MONOCYTES % (MANUAL) 8 %; NEUTROPHILS % (MANUAL) 53 %; RBC MORPH NORMAL; REACTIVE LYMPHOCYTES 23 %
[2022-05-17] MEDS ORDERED: ORPHENADRINE 60 MG/2 ML (NORFLEX) AMP (ED ONLY) IV ONE (17:00)
[2022-05-17] MEDS ORDERED: PRD50T PO (17:11)
[2022-05-17] MEDS ORDERED: PREG50CA2 PO (17:11)
[2022-05-17] MEDS ORDERED: NABU500T8 PO (17:11)
[2022-05-17] MEDS ORDERED: HYDR-3817 PO (17:16)
[2022-05-17 21:44] VITALS: BP 145/90
== END 2022-05-17 17:20 | disposition home or self-care (01) ==
LOC: EDUNIT# 15:59 → ER 15:59
DX: M77.8 Other enthesopathies, not elsewhere classified (principal); Z88.5 Allergy status to narcotic agent
CPT/HCPCS: 36415; 71045; 80053; 83735; 84484; 85007; 85027; 85610; 85730; 93005; 93041

== ENCOUNTER → 2022-07-19 | Outpatient (CLI) | payer MEDICARE, MEDICAID ==
[~2022-07-19] MED LIST changes: +HYDR-3817 PO; +NABU500T8 PO; +PREG50CA2 PO
--- NOTE | 2022-07-19 12:08 | Diagnostic Imaging Report ---
INDICATION: Neck pain. COMPARISON: None FINDINGS: Frontal, lateral, and open-mouth radiographic views of the cervical spine were obtained. Evaluation static alignment shows slight grade 1 retrolisthesis at C3-C4. There is no evidence of jumped facets. Vertebral body heights are maintained. There is no acute fracture. There are moderate multilevel degenerative changes consistent with intervertebral disc height loss with anterior and posterior endplate osteophyte formations. These changes appear greatest at C3-C4, C5-C6, and C6-C7. There is probable left calcified carotid atherosclerosis. Included portions lung apices are clear. IMPRESSION: 1. No acute fracture or dislocation cervical spine. 2. Moderate multilevel degenerative changes. Dictated by: Dictated on workstation # [id number]
== END ==
LOC: RAD 10:22
PROVIDERS: ATTEND Family Medicine
DX: M47.812 Spondylosis without myelopathy or radiculopathy, cervical region (principal)
CPT/HCPCS: 72040

== ENCOUNTER → 2022-08-10 | Outpatient (CLI) | payer MEDICARE, MEDICAID ==
--- NOTE | 2022-08-10 11:36 | Diagnostic Imaging Report ---
PROCEDURE: MRI lumbar spine. TECHNIQUE: Multiplanar, multisequence MRI of the lumbar spine was performed without contrast. INDICATION: Chronic back pain EXAMINATION: Lumbar spine MRI without contrast 08/10/2022. COMPARISON: 03/24/2020 FINDINGS: There is normal height and alignment of the vertebral bodies. Tip of the conus unremarkable in appearance and location. L1-L2: Unremarkable. L2-L3: There is bilateral facet and ligamentum flavum hypertrophy. Minimal broad-based bulging is material is noted. No central stenosis. There is a [id number] bilateral neural foraminal narrowing. L3-L4: There is disc desiccation with a mild broad-based bulging disc. There is bilateral facet and ligamentum flavum hypertrophy. There is mild central narrowing. There is moderate bilateral neural foraminal stenosis. L4-L5: There is intervertebral disc space narrowing and disc desiccation. There is bilateral facet and ligamentum flavum hypertrophy. There is a mild broad-based bulging disc. Secondary moderate central stenosis is noted. There is narrowing of the lateral recesses bilaterally. There is moderate bilateral neural foraminal stenosis. L5-S1: There is intervertebral disc space narrowing and disc desiccation. There is bilateral facet and ligamentum flavum hypertrophy. There is a broad-based bulging disc. There is moderate central stenosis with narrowing of the right lateral recess. There is moderate left and moderate to severe right neural foraminal stenosis. The visualized intra-abdominal structures demonstrate a simple cyst in the right kidney. IMPRESSION: 1. Multilevel degenerative findings most pronounced from L3-L4 through L5-S1 as detailed above. Dictated by: Dictated on workstation # [id number]
== END ==
LOC: RAD 08:59
PROVIDERS: ATTEND Family Medicine
DX: M47.816 Spondylosis without myelopathy or radiculopathy, lumbar region (principal); M47.817 Spondylosis without myelopathy or radiculopathy, lumbosacral region; M48.061 Spinal stenosis, lumbar region without neurogenic claudication; M51.26 Other intervertebral disc displacement, lumbar region; M48.07 Spinal stenosis, lumbosacral region; M51.27 Other intervertebral disc displacement, lumbosacral region; N28.1 Cyst of kidney, acquired; M89.38 Hypertrophy of bone, other site
CPT/HCPCS: 72148

== ENCOUNTER → 2022-11-29 | Outpatient (CLI) | payer MEDICARE, MEDICAID ==
--- NOTE | 2022-11-29 13:52 | Diagnostic Imaging Report ---
EXAMINATION: CT chest without contrast (lung screening). TECHNIQUE: Multiple contiguous axial images were obtained through the chest without the use of intravenous contrast according to lung cancer screening protocol. All CT scans use one or more of the following dose optimizing techniques: automated exposure control, MA and/or KvP adjustment based on patient size and exam type or iterative reconstruction. HISTORY: 40 pack year history of smoking. COMPARISON: None available. FINDINGS: Thyroid: The thyroid is normal. Mediastinum: Heart size is normal without significant pericardial effusion. Calcifications of the aorta and coronary vessels. Thoracic aorta is normal in caliber. No suspicious lymphadenopathy. Lungs and airways: The lungs are clear without consolidation, pleural effusion, or pneumothorax. There is a 0.6 x 0.5 cm right middle lobe pulmonary nodule which may demonstrate a few internal small calcifications. There is a 0.5-0.3 cm left lower lobe pulmonary nodule. There is a left lower lobe pulmonary nodule measuring 0.9 x 0.7 cm (series 2 image 115). The airways are normal. The right upper azygos lobe is present. Upper abdomen: The subphrenic structures are normal. Musculoskeletal: Degenerative changes of the spine without suspicious osseous lesion or compression fracture. IMPRESSION: 1. Bilateral pulmonary nodules measuring up to 0.8 cm average left lower lobe. Consider short-term 3 month low-dose CT followup. Alternatively, PET/CT could be performed for better characterization. LUNG-RADS CATEGORY: 4a MODIFIER: None Dictated by: Dictated on workstation # [id number]
== END ==
LOC: RAD 07:54
PROVIDERS: ATTEND Family Medicine
DX: Z12.2 Encounter for screening for malignant neoplasm of respiratory organs (principal); R91.8 Other nonspecific abnormal finding of lung field; Z87.891 Personal history of nicotine dependence
CPT/HCPCS: 71271